=== PATIENT | female | born 1955 | race Caucasian/White ===

== ENCOUNTER → 2016-09-16 | Outpatient (CLI) | payer BC ==
[~2016-09-16] MED LIST: ISOS30TA4 PO; LASI20TA PO; NITR4TASL SL; POTA20TA PO; URSO300C3 PO
--- NOTE | 2016-09-16 09:43 | REP ---
Complete abdominal sonography: Hepatic and portal venous Doppler assessment: History: Cirrhosis of the liver without mention of alcohol, primary biliary cirrhosis. Comparison CT study July 02, 2014. Comparison sonography June 02, 2015. Sonographic findings: Scanning through the right upper quadrant of the abdomen demonstrates a normal sized thin-walled gallbladder without evidence of stone or polyp. Common bile duct is normal measuring 0.5 cm in greatest diameter. There is a coarse liver texture. The umbilical vein is seen to be patent. No focal liver mass lesion is seen. Scan quality is inhibited by patient body habitus and bowel gas. There is minimal ascites adjacent to the liver. A normal caliber mid aorta is seen. Pancreas is obscured by abdominal gas. The spleen is enlarged measuring 13.1 cm in greatest diameter. No focal splenic lesion is seen. There is no evidence of hydronephrosis, cyst or mass in either kidney. Right renal dimensions are 9.4 x 6.0 x 5.1 cm. The left kidney measures 10.6 x 4.7 x 5.3 cm. Impression: Findings compatible with cirrhosis. No focal liver lesion is seen. Visceral Doppler findings: Exam quality is inhibited as above due to patient body habitus, bowel gas, and inability to breath hold. Normal direction of and velocities are seen in the portal vein, splenic vein, and hepatic veins. Minimal ascites is seen. Main portal vein by diameter is normal at 6 mm. Velocity venous flow in the portal vein is recorded 18.9 cm/sec. Splenic vein velocity is 30.7 cm/sec. Hepatic arterial peak systolic velocity is 112 cm/sec. Impression: Recannulated umbilical vein . Normal direction and velocities in the splenic and portal vein. Scan quality is inhibited to some degree. Signed by Dmitri Sorto MD 09/16/2016 12:57 P
[2016-09-16 11:09] LABS: INR 1.36
[2016-09-16 11:13] LABS: ALBUMIN 2.1 GM/DL (3.2-5.2); ALBUMIN/GLOBULIN RATIO 0.58 (1.00-1.93); ALKALINE PHOSPHATASE 232 U/L (45-117); ALT/SGPT 41 U/L (12-78); ANION GAP 5 MEQ/L (8-16); AST/SGOT 73 U/L (15-37); BILIRUBIN,DIRECT 2.4 MG/DL (0.0-0.2); BILIRUBIN,TOTAL 3.2 MG/DL (0.2-1.0); BLOOD UREA NITROGEN 11 MG/DL (7-18); CALCIUM LEVEL 8.1 MG/DL (8.8-10.2); CARBON DIOXIDE LEVEL 30 MEQ/L (21-32); CHLORIDE LEVEL 105 MEQ/L (98-107); FERRITIN 22 NG/ML (8-252); GLOMERULAR FILTRATION RATE > 60.0 (>45); GLUCOSE, FASTING 83 MG/DL (80-110); POTASSIUM SERUM 3.9 MEQ/L (3.5-5.1); SODIUM LEVEL 140 MEQ/L (136-145); TOTAL PROTEIN 5.7 GM/DL (6.4-8.2)
[2016-09-18 00:06] LABS: SJOGREN'S ANTI SS-A <0.2 AI (0.0-0.9); SJOGREN'S ANTI SS-B 3.3 AI (0.0-0.9)
== END ==
LOC: M RAD 07:59
PROVIDERS: ATTEND Internal Medicine Gastroenterology
DX: K74.60 Unspecified cirrhosis of liver (principal); K74.3 Primary biliary cirrhosis

== ENCOUNTER 2016-12-24 16:07 | Observation (INO) | payer BC ==
[~2016-12-24] VITALS: Ht 162.6 cm; Wt 104.4 kg
[2016-12-24] MEDS ORDERED: SPIR50TA2 PO (16:27)
[2016-12-24] MEDS ORDERED: VITA1CAP40 (16:27)
[2016-12-24 17:44] LABS: INR 1.47
[2016-12-24 17:49] LABS: ADD MANUAL DIFFER YES; DIFF SLIDE NUMBER 318; MEAN CORPUSCULAR HGB CONC 29.8 g/dl (32.0-36.5); MEAN CORPUSCULAR VOLUME 83.8 fl (80.0-96.0); RED CELL DISTRIBUTION WIDTH 23.3 % (11.5-14.5)
[2016-12-24 18:00] LABS: ALBUMIN 2.2 GM/DL (3.2-5.2); ALBUMIN/GLOBULIN RATIO 0.61 (1.00-1.93); ALKALINE PHOSPHATASE 192 U/L (45-117); ALT/SGPT 39 U/L (12-78); ANION GAP 10 MEQ/L (8-16); AST/SGOT 61 U/L (15-37); BILIRUBIN,DIRECT 2.6 MG/DL (0.0-0.2); BILIRUBIN,TOTAL 3.6 MG/DL (0.2-1.0); BLOOD UREA NITROGEN 14 MG/DL (7-18); CALCIUM LEVEL 8.3 MG/DL (8.8-10.2); CARBON DIOXIDE LEVEL 26 MEQ/L (21-32); CHLORIDE LEVEL 106 MEQ/L (98-107); CREATININE FOR GFR 0.73 MG/DL (0.55-1.02); GLOMERULAR FILTRATION RATE > 60.0 (>45); GLUCOSE, FASTING 97 MG/DL (80-110); POTASSIUM SERUM 4.2 MEQ/L (3.5-5.1); SODIUM LEVEL 142 MEQ/L (136-145); TOTAL PROTEIN 5.8 GM/DL (6.4-8.2)
--- NOTE | 2016-12-24 18:01 | REP ---
Clinical: Altered mental status . Comparison: None . Findings: The ventricles, sulci, and cisterns are normal in position and appearance. South-white differentiation is maintained. No acute intracranial hemorrhage, mass/mass effect, pathology or trauma/injury. No evidence for acute infarction. No extra-axial fluid collection. Calvarium is intact. Paranasal sinuses and mastoid air cells are clear. Impression: Normal noncontrast head CT. No evidence for acute intracranial pathology or trauma/injury. Signed by Stefano Chery MD 12/24/2016 05:52 P
[2016-12-24 18:09] LABS: PLATELET COUNT, AUTOMATED 70 k/mm3 (150-450)
[2016-12-24] MEDS ORDERED: LACTULOSE 20 GM/30 ML SYRUP UD PO ONE (18:30)
[2016-12-24 19:18] LABS: BASOPHILS 1 % (0-4); EOSINOPHILS 4 % (0-5)
[2016-12-24 19:19] LABS: ANISOCYTOSIS 2+; HYPOCHROMASIA 2+; MICROCYTOSIS 1+; POLYCHROMASIA 1+
[2016-12-24] MEDS ORDERED: ONDANSETRON 4MG/2ML VIAL (J2405) IV PRN (19:45)
[2016-12-24] MEDS ORDERED: ERGO500014 PO (20:12)
[2016-12-24] MEDS ORDERED: ICYCRE EXT (20:12)
--- NOTE | 2016-12-24 20:39 | HPE ---
DATE OF ADMISSION: 12/24/2016 PRIMARY CARE PROVIDER: Emma Miller NP, [facility]. HISTORY OF PRESENT ILLNESS: This is a patient is a 61-year-old female with a past medical history significant for primary biliary cirrhosis who presented to [facility] on 12/24/2016 with intermittent confusion. At approximately 1:00 a.m., the patient woke up with confusion, not able to answer questions properly, and the patient started to have nausea without vomiting. Her mentation started to improve spontaneously. However, the symptoms still occurred intermittently throughout the day and this afternoon occurred again and the family member decided to bring the patient to [facility] for further evaluation. The patient does complain about one soft stool in the last 24 hours. The patient also noted to have intermittent hand and leg shaking during those confusion episodes, but no tongue biting. No loss of bowel or bladder control. The patient also had a very unsteady gait. No loss of consciousness noted. The confusion never happened before. The patient was originally diagnosed with primary biliary cirrhosis and since July of 2014, the patient has been following with the [facility]. ALLERGIES: Questionable to PENICILLIN. PAST MEDICAL HISTORY: Primary biliary cirrhosis diagnosed in July 2014. PAST SURGICAL HISTORY: (C) section. SOCIAL HISTORY: The patient smoked for more than 40 years. The patient denies drinking alcohol. Denied any recreational drug use. DO NOT RESUSCITATE (DNR)/DO NOT INTUBATE (DNI). REVIEW OF SYSTEMS: GENERAL: Denies any fever or chills. HEENT: No vision changes. No auditory changes. CARDIOVASCULAR: No chest pain. No palpitations. RESPIRATORY: No shortness of breath. No cough. No sputum production. GASTROINTESTINAL: One episode of soft stool in the last 24 hours. Denies any abdominal pain. Denies any constipation. The patient does complain about nausea. No vomiting. MUSCULOSKELETAL: Denied any joint pain or muscle pain. NEUROLOGIC: The patient does present with intermittent confusion since 1:00 a.m. today. OBJECTIVE: VITAL SIGNS: The temperature is 97.9, pulse is 86, respiratory rate 18, blood pressure 134/61, pulse oximetry 98% on room air. GENERAL: No sign of acute distress, morbidly obese, alert and oriented times three. HEENT: Normocephalic, atraumatic. Extraocular motor grossly intact. CARDIOVASCULAR: Positive systolic murmur heard at the left sternal border. Positive S1, S2, regular rate. LUNGS: Clear to auscultation bilaterally. ABDOMEN: Soft, nontender, nondistended. Bowel sounds present. No rebound. No guarding. EXTREMITIES: No edema. No sign of cyanosis. NEUROLOGICAL: Sensation to fine touch grossly intact. Muscle strength 5/5. LABORATORY DATA: WBC is 3, hemoglobin 8.6, hematocrit is 28.7, platelet count is 70. Sodium is 142, potassium 4.2, chloride is 106, carbon dioxide 26, BUN 14, creatinine 0.73, GFR greater than 60, fasting glucose 97, lactic acid is 1.8, calcium is 8.3, total bilirubin is 3.6, direct bilirubin is 2.6, AST is 61, ALT is 36, alkaline phosphatase is 192, ammonia level 46, total bilirubin is 5.8, albumin is 2.2. PT is 18.2, INR is 1.47. MICROBIOLOGY: Blood cultures are pending times two sets. CT of the head without contrast shows normal noncontrast head CT. No evidence of acute intracranial pathology, trauma or injury. ASSESSMENT AND PLAN: 1. Metabolic encephalopathy. The patient admitted to the medical/surgical floor under observation status. The patient does have a history of primary biliary cirrhosis with an elevated ammonia level. The patient has not been taking lactulose. Lactulose was started in the emergency room. We will continue as a scheduled dose and to try to achieve less than three bowel movements in 24 hours. We will check the ammonia level tomorrow morning. 2. Primary biliary cirrhosis. The patient has been taking immunosuppressant given by her specialist. The patient may continue taking the same medications while inpatient. Continue with the diuretic. 3. New onset of heart murmur. The patient has never been noticed to have a heart murmur. We will follow with a cardiac echogram. 4. Pancytopenia, most likely secondary to the patient's liver cirrhosis. Continue to follow with the complete blood count (CBC) tomorrow. 5. Deep vein thrombosis (DVT) prophylaxis. Due to thrombocytopenia with a platelet count of 70, the patient will be on thromboembolic-deterrent stockings (TEDS), sequential compression device. [facility]
[2016-12-24 21:30] VITALS: BP 123/57
[2016-12-24] MEDS: LACTULOSE 20 GM/30 ML SYRUP UD PO SCH (23:09)
[2016-12-25] MEDS: LACTULOSE 20 GM/30 ML SYRUP UD PO SCH ×4 (05:25→23:34)
[2016-12-25 06:00] VITALS: BP 104/50
[2016-12-25] MEDS ORDERED: HEPARIN SOD (PORCINE) 5000 UNITS/ML VIAL SC SCH (06:00)
[2016-12-25 06:09] LABS: MEAN CORPUSCULAR HEMOGLOBIN 25.1 pg (27.0-33.0); MEAN CORPUSCULAR HGB CONC 30.3 g/dl (32.0-36.5); MEAN CORPUSCULAR VOLUME 82.8 fl (80.0-96.0); RED CELL DISTRIBUTION WIDTH 23.4 % (11.5-14.5)
[2016-12-25 06:36] LABS: ALBUMIN/GLOBULIN RATIO 0.63 (1.00-1.93); ALKALINE PHOSPHATASE 165 U/L (45-117); ALT/SGPT 35 U/L (12-78); ANION GAP 7 MEQ/L (8-16); AST/SGOT 60 U/L (15-37); BILIRUBIN,TOTAL 3.2 MG/DL (0.2-1.0); BLOOD UREA NITROGEN 14 MG/DL (7-18); CALCIUM LEVEL 7.9 MG/DL (8.8-10.2); CARBON DIOXIDE LEVEL 28 MEQ/L (21-32); CHLORIDE LEVEL 108 MEQ/L (98-107); CREATININE FOR GFR 0.74 MG/DL (0.55-1.02); GLOMERULAR FILTRATION RATE > 60.0 (>45); GLUCOSE, FASTING 91 MG/DL (80-110); MAGNESIUM LEVEL 1.9 MG/DL (1.8-2.4); POTASSIUM SERUM 3.8 MEQ/L (3.5-5.1); SODIUM LEVEL 143 MEQ/L (136-145); TOTAL PROTEIN 5.2 GM/DL (6.4-8.2)
[2016-12-25] MEDS: FUROSEMIDE 20 MG TAB PO SCH ×2 (08:47→17:51)
[2016-12-25] MEDS: URSODIOL 300 MG CAP PO SCH ×3 (08:47→17:51)
[2016-12-25] MEDS: SPIRONOLACTONE 50 MG TAB PO SCH ×2 (08:47→20:22)
[2016-12-25] MEDS: rifAXIMin 550 MG TAB (XIFAXAN) PO SCH ×2 (08:47→20:22)
[2016-12-25] MEDS: NICOTINE 14 MG/24 HR TRANSDERMAL TD SCH ×2 (08:48→08:54)
[2016-12-25 14:00] VITALS: BP 121/59
--- NOTE | 2016-12-25 16:09 | REP ---
HEPATIC ULTRASOUND: 12/25/2016: COMPARISON: 09/16/2016, 06/02/2015, 11/15/2014. CLINICAL HISTORY: Cirrhosis. FINDINGS: Sonographic evaluation of the liver shows the right lobe with coarse echotexture in the liver. It is overall small and somewhat cirrhotic in appearance. Left lobe is poorly visualized. Pancreas is not seen due to extensive gas shadowing. No visible mass or biliary dilatation. Gallbladder is contracted although the patient has a fast for more than 8 hours. No definite shadowing stones are identified. Common duct is not seen due to the patient's field of view. The kidney is 9.3 x 6.3 x 6.2 cm. The hepatic portal veins are patent and the main portal vein shows flow into the liver at this time. IMPRESSION: 1. Coarse echotexture in the liver with lobulated contour. There is a small right hepatic lobe, left hepatic lobe obscured by extensive gas shadowing. Findings suggest stenosis. No biliary dilatation. 2. Pancreas not seen due to gas shadowing. The gallbladder is contracted although she has had an adequate fast of more than 8 hours. No gross stones. Common duct not seen. Right kidney mildly atrophic 9.3 cm in length. No hydronephrosis or stone. The main portal vein shows flow into the liver. Patent see veins in the liver noted. Signed by Maurizio Rush MD 12/25/2016 04:22 P
--- NOTE | 2016-12-25 16:32 | IPNPDOC ---
Subjective Date Seen The patient was seen on 12/25/16. Subjective Chief Complaint/HPI The patient is a 61-year-old female admitted with a reason for visit of Hepactic Encephalopathy Primary Biliary Cirrhosis. Pt was seen and examined at bedside. Pt has a pleasant demeanor. Pt states she did not sleep well due to pain from previous T12 fracture. States she had one bowel movement last night that was green and brown, no blood. No acute complaints. Pt is noted to be more interactive and coherent. Per staff, pt no longer seems to have altered mental status and no overnight concerns were reported. Constitutional: Denies: Chills, Fever ENT: Denies: Head Aches, Dysphagia Pulmonary: Denies: Dyspnea, Cough Cardiovascular: Denies: Chest Pain, Lt Headedness Gastrointestinal: Denies: Nausea, Vomiting, Abdominal Pain Genitourinary: Denies: Dysuria Musculoskeletal: Reports: Other Symptoms (Back pain at T12 from fracture previously) Psych: Reports: Mood Normal Objective Physical Examination General Exam: Positive: Alert, Cooperative, No Acute Distress Eye Exam: Positive: EOMI Neck Exam: Positive: Supple, Negative: Lymphadenopathy Chest Exam: Positive: Rales (b/l lower base), Negative: Wheezing Heart Exam: Positive: Rate Normal, Regular Rhythm, Normal S1, Normal S2, Murmurs (systolic murmur heard best at the sternal border at the 2nd intercostal space) Abdomen Exam: Positive: BS Hyperactive, Soft, Negative: Tenderness Extremity Exam: Positive: Normal pulses, Other (lacuna more than half of nail bed), Negative: Tenderness, Swelling Skin Exam: Positive: Nl turgor and temperature Neuro Exam: Positive: Normal Speech Psych Exam: Positive: Mental status NL, Mood NL, Memory Intact, Oriented x 3 Assessment /Plan Assessment s/p Metabolic Encephalopathy - Significant improvement in her mental status this morning; AAOx3, no confusion noted -Pt arrived to the ED with an elevated ammonia level that has since been trending down on Lactulose. Goal is to have up to 3 BMs/day. Monitor -Rifaximin started today for possible etiologic cause being bacterial overgrowth Primary Biliary Cirrhosis -continue home Ursodial and diuretics Lasix & Spironolactone -PENDING: Liver US Pancytopenia -2/2 cirrhotic liver. Monitor -Repeat H&H are stable and non-concerning. Transfuse if H&H<7 or if pt symptomatic New heart murmur -systolic murmur at 2nd left intercostal space -PENDING: Echocardiogram Hx of smoking -Nicotine patch DVT prophylaxis -TEDs/SCDs. Avoid Heparin and Lovenox due to pre-existing thrombocytopenia Plan/VTE VTE Prophylaxis Ordered?: Yes VS, I&O, 24H, Fishbone Vital Signs/I&O Vital Signs Date Time Temp Pulse Resp B/P (MAP) Pulse Ox O2 Delivery O2 Flow Rate FiO2 12/25/16 06:00 98.6 82 18 104/50 (68) 98 Room Air I&O- Last 24 Hours up to 6 AM 12/25/16 05:59 Intake Total 0 ml Output Total 250 ml Balance -250 ml Laboratory Data 24H LABS Laboratory Tests 2 12/24/16 17:17: Neutrophils 72, Lymphocytes (Manual) 18, Monocytes (Manual) 5, Eosinophils ( Manual) 4, Basophils (Manual) 1, Platelet Estimate DECREASED, Polychromasia 1+, Hypochromasia 2+, Anisocytosis 2+, Microcytosis 1+, Prothrombin Time 18.2H, Prothromb Time International Ratio 1.47, Activated Partial Thromboplast Time 35.8, Anion Gap 10, Glomerular Filtration Rate > 60.0, Lactic Acid Level 1.8, Calcium Level 8.3L, Aspartate Amino Transf (AST/SGOT) 61H, Alanine Aminotransferase (ALT/SGPT) 39, Alkaline Phosphatase 192H, Total Bilirubin 3.6H , Direct Bilirubin 2.6H, Ammonia 46H, Total Protein 5.8L, Albumin 2.2L, Albumin/ Globulin Ratio 0.61L 12/25/16 05:52: Anion Gap 7L, Glomerular Filtration Rate > 60.0, Calcium Level 7.9L, Aspartate Amino Transf (AST/SGOT) 60H, Alanine Aminotransferase (ALT/SGPT) 35, Alkaline Phosphatase 165H, Total Bilirubin 3.2H, Ammonia 40H, Total Protein 5.2L, Albumin 2.0L, Albumin/Globulin Ratio 0.63L, Blood Urea Nitrogen 14, Creatinine 0.74, Sodium Level 143, Potassium Level 3.8, Chloride Level 108H, Carbon Dioxide Level 28, Magnesium Level 1.9 CBC/BMP Laboratory Tests 12/24/16 17:17 Red Blood Count 3.43 L, Mean Corpuscular Volume 83.8, Mean Corpuscular Hemoglobin 25.0 L, Mean Corpuscular Hemoglobin Concent 29.8 L, Red Cell Distribution Width 23.3 H 12/25/16 05:52 Red Blood Count 3.12 L, Mean Corpuscular Volume 82.8, Mean Corpuscular Hemoglobin 25.1 L, Mean Corpuscular Hemoglobin Concent 30.3 L, Red Cell Distribution Width 23.4 H, Calcium Level 7.9 L, Aspartate Amino Transf (AST/SGOT ) 60 H, Alanine Aminotransferase (ALT/SGPT) 35, Alkaline Phosphatase 165 H, Total Bilirubin 3.2 H, Total Protein 5.2 L, Albumin 2.0 L Microbiology Microbiology 12/24/16 Blood Culture, Received Pending 12/24/16 Blood Culture, Received Pending GME ATTESTATION GME ATTESTATION My preceptor for this patient encounter was physically present in the building during the encounter and was fully available. As needed, all aspects of the patient interview, examination, medical decision making process, and medical care plan development were reviewed and approved by the preceptor. Preceptor is aware and concurs with the plan as stated in the body of this note and will attest to such by his/her cosignature. ATTENDING NOTE I, Magaly Mcfarlane, have both independently examined this patient as well as reviewed the documentation. I have discussed in detail with the resident the findings and plan of treatment as documented in the residents documentation. I will continue to follow the patient and offer further guidance to the patients care as necessary during this hospital stay. PRINCESS MARY DO Dec 25, 2016 07:55 MAGALY MCFARLANE MD Dec 30, 2016 15:57
[2016-12-25 22:00] VITALS: BP 117/54
[2016-12-26] MEDS: LACTULOSE 20 GM/30 ML SYRUP UD PO SCH ×2 (05:18→11:39)
[2016-12-26 06:00] VITALS: BP 120/58
[2016-12-26 06:41] LABS: MEAN CORPUSCULAR HEMOGLOBIN 25.2 pg (27.0-33.0); MEAN CORPUSCULAR VOLUME 83.9 fl (80.0-96.0); RED CELL DISTRIBUTION WIDTH 23.1 % (11.5-14.5); WHITE BLOOD COUNT 2.5 K/mm3 (4.0-10.0)
[2016-12-26 07:02] LABS: ALBUMIN/GLOBULIN RATIO 0.65 (1.00-1.93); ALKALINE PHOSPHATASE 191 U/L (45-117); ALT/SGPT 33 U/L (12-78); ANION GAP 8 MEQ/L (8-16); AST/SGOT 57 U/L (15-37); BILIRUBIN,TOTAL 2.6 MG/DL (0.2-1.0); BLOOD UREA NITROGEN 14 MG/DL (7-18); CALCIUM LEVEL 7.1 MG/DL (8.8-10.2); CARBON DIOXIDE LEVEL 27 MEQ/L (21-32); CHLORIDE LEVEL 109 MEQ/L (98-107); CREATININE FOR GFR 0.67 MG/DL (0.55-1.02); GLOMERULAR FILTRATION RATE > 60.0 (>45); GLUCOSE, FASTING 91 MG/DL (80-110); SODIUM LEVEL 144 MEQ/L (136-145); TOTAL PROTEIN 5.1 GM/DL (6.4-8.2)
[2016-12-26] MEDS: NICOTINE 14 MG/24 HR TRANSDERMAL TD SCH (08:18)
[2016-12-26] MEDS: SPIRONOLACTONE 50 MG TAB PO SCH (08:18)
[2016-12-26] MEDS: rifAXIMin 550 MG TAB (XIFAXAN) PO SCH (08:18)
[2016-12-26] MEDS: FUROSEMIDE 20 MG TAB PO SCH (08:19)
[2016-12-26] MEDS: URSODIOL 300 MG CAP PO SCH ×2 (08:19→11:38)
[2016-12-26] MEDS ORDERED: XIFA550T PO (13:21)
[2016-12-26] MEDS ORDERED: LACT10SO3 PO (13:21)
--- NOTE | 2016-12-27 09:42 | ECHO ---
DATE OF PROCEDURE: 12/25/2016 DATE OF : 1955 AGE: 61 REFERRING PROVIDER: Dr. Rani Fernandez. PATIENT LOCATION: Room 4229. REASON FOR ECHOCARDIOGRAM: Heart murmur. 2D MEASUREMENTS: IVS: 1.2 cm LV: 4.5 cm LVPW: 1.1 cm LA: 4.3 cm Aorta: 2.9 cm IVC: 1.9 cm DOPPLER MEASUREMENTS: Peak velocity across the aortic valve: 1.9 m/s Peak velocity across the LVOT: 1.0 m/s Mitral E: 1.3 Mitral A: 1.0 Ratio 1.2 Maximum tricuspid valve velocity: 2.6 m/s 2D COMMENTS: 1. Normal left ventricular size, wall thickness and normal global left ventricular systolic function. The estimated global left ventricular systolic ejection fraction is 60% to 65%. 2. Mildly enlarged left atrium. Normal right atrium and right ventricle. 3. The atrial septum appeared to be normal without evidence of defect or shunt. 4. Normal aortic root. 5. No pericardial effusion seen. 6. Mildly calcified aortic valve, leaflet excursion appeared to be normal. Mildly calcified mitral annulus. Could not rule out prolapse of the anterior mitral valve leaflet. Normal tricuspid valve and pulmonic valve. The proximal pulmonary artery branches were not well visualized. 7. The inferior vena cava was normal in size, central venous pressure likely normal. DOPPLER: It detects trace aortic regurgitation, moderate eccentric mitral regurgitation, mild tricuspid regurgitation, and trace pulmonic regurgitation. The calculated pulmonary artery systolic pressure varies between 30 to 40 mmHg. Abnormal relaxation pattern was noted across the mitral valve annulus consistent with pseudonormal pattern. IMPRESSION: 1. Normal global left ventricular systolic function. There are features of left ventricular diastolic dysfunction. 2. Aortic valve sclerosis with trace aortic regurgitation and trivial aortic stenosis. 3. Mitral annulus calcification with mildly enlarged left atrium and moderate mitral regurgitation. Could not rule out mild prolapse of the anterior mitral valve leaflet. 4. Mild tricuspid regurgitation with mild pulmonary hypertension. MTDD
--- NOTE | 2016-12-27 14:15 | DS.PDOC ---
Discharge Summary General Date of Admission Dec 24, 2016 at 19:45 Date of Discharge 12/26/16 Primary Care Physician: Emma Hardy Attending Physician: MAGALY MORRIS MD Discharge Summary PROCEDURES PERFORMED DURING STAY: Echocardiogram ADMITTING DIAGNOSES: 1. Hepatic Encephalopathy 2. Primary Biliary Cirrhosis DISCHARGE DIAGNOSES: 1. Primary Biliary Cirrhosis. COMPLICATIONS/CHIEF COMPLAINT: Hepatic Encephalopathy Primary Biliary Cirrhosis. HISTORY OF PRESENT ILLNESS: Ms. Jennings was brought by family to ED for intermittent confusion that started around 1 AM when she woke up from sleep, and associated with nausea. Episodes spontaneously resolved, and reoccurred later in the day. Episodes are associated with unsteady gait and intermittent shaking of hands and legs, but no tongue biting. No loss of bowel or bladder function. Patient denies history of similar symptoms. Pt has history of Primary Biliary Cirrhosis, diagnosed in July 2014, which she is seeking care for at [facility]. HOSPITAL COURSE: In the ED, she was found to have elevated ammonia level, pancytopenia, hyperbilirubinemia, transaminase. Blood cultures were negative. Pt does not regularly take Lactulose. It was started in the hospital along with Rifaximin, which helped patient improve. Pt had no acute events in hospital throughout entire stay. Pt was no longer confused the morning after admission, and stated she felt better and eager to go home. Pt was medically cleared with instructions to follow up with PCP and [employer] in outpatient setting. DISCHARGE MEDICATIONS: Please see below. ALLERGIES: Please see below. PHYSICAL EXAMINATION ON DISCHARGE: VITAL SIGNS: Please see below. GENERAL: NAD, resting comfortably in bed HEENT: normocephalic, atraumatic NECK: supple CARDIOVASCULAR EXAMINATION: RRR, systolic 2/6 murmur at left sternal border RESPIRATORY EXAMINATION: CTAB ABDOMINAL EXAMINATION: soft, nontender, nondistended EXTREMITIES: no cyanosis, edema SKIN: no visible lesions NEUROLOGICAL EXAMINATION: able to move all 4 extremities PSYCHIATRIC EXAMINATION: normal mood and affect LABORATORY DATA: Please see below. IMAGING: * 12/[address]: Normal noncontrast head CT. No evidence for acute intracranial pathology or trauma/injury. * 12/24 Liver US: Coarse echotexture in the liver with lobulated contour. There is a small right hepatic lobe, left hepatic lobe obscured by extensive gas shadowing. Findings suggest stenosis. No biliary dilatation. Pancreas not seen due to gas shadowing. The gallbladder is contracted although she has had an adequate fast of more than 8 hours. No gross stones. Common duct not seen. Right kidney mildly atrophic 9.3 cm in length. No hydronephrosis or stone. The main portal vein shows flow into the liver. PROGNOSIS: Good ACTIVITY: As tolerated DIET: Regular DISPOSITION: Home DISCHARGE INSTRUCTIONS: 1. F/U with PCP Emma Miller, appt made for 01/03 @ 2:15pm 2. F/U with [employer] Dr. Arce, appt for 01/07 @ 3:30pm 3. Remain compliant with medications and return to ED if needed DISCHARGE CONDITION: Stable TIME SPENT ON DISCHARGE: Greater than 30 minutes. Vital Signs/I&Os Vital Signs Date Time Temp Pulse Resp B/P (MAP) Pulse Ox O2 Delivery O2 Flow Rate FiO2 12/26/16 06:00 97.8 91 18 120/58 (78) 100 12/25/16 14:00 Room Air I&O- Last 24 Hours up to 6 AM 12/26/16 06:00 Intake Total 840 ml Output Total 150 ml Balance 690 ml Laboratory Data Labs 24H Laboratory Tests 2 12/26/16 06:00: Anion Gap 8, Glomerular Filtration Rate > 60.0, Blood Urea Nitrogen 14, Creatinine 0.67, Sodium Level 144, Potassium Level 4.0, Chloride Level 109H, Carbon Dioxide Level 27, Calcium Level 7.1L, Aspartate Amino Transf (AST/SGOT) 57H, Alanine Aminotransferase (ALT/SGPT) 33, Alkaline Phosphatase 191H, Total Bilirubin 2.6H, Total Protein 5.1L, Albumin 2.0L, Magnesium Level 2.0, Ammonia 34H, Albumin/Globulin Ratio 0.65L CBC/BMP Laboratory Tests 12/25/16 12:54 12/26/16 06:00 Red Blood Count 3.12 L, Mean Corpuscular Volume 83.9, Mean Corpuscular Hemoglobin 25.2 L, Mean Corpuscular Hemoglobin Concent 30.0 L, Red Cell Distribution Width 23.1 H, Calcium Level 7.1 L, Aspartate Amino Transf (AST/SGOT ) 57 H, Alanine Aminotransferase (ALT/SGPT) 33, Alkaline Phosphatase 191 H, Total Bilirubin 2.6 H, Total Protein 5.1 L, Albumin 2.0 L Microbiology Microbiology 12/24/16 Blood Culture - Preliminary, Resulted No growth after 24 hours . All specim... 12/24/16 Blood Culture - Preliminary, Resulted No growth after 24 hours . All specim... Discharge Medications Scheduled Ergocalciferol (Ergocalciferol) 50,000 Unit Cap, 50,000 UNIT PO ASDIRECTED, ( Reported) TAKES ON FRIDAY MORNINGS Furosemide (Lasix) 20 Mg Tab, 20 MG PO BID, (Reported) Potassium Chloride (Klor-Con M20) 20 Meq Tabcr, 20 MEQ PO DAILY, (Reported) Rifaximin (Xifaxan) 550 Mg Tab, 550 MG PO BID Spironolactone (Spironolactone) 50 Mg Tab, 50 MG PO BID, (Reported) Ursodiol (Ursodiol) 300 Mg Cap, 300 MG PO WM, (Reported) Scheduled PRN (Icy Hot Extra Strength 10-30 %) 1 Cre Cre, 1 DOSE EXT QID PRN for PAIN, ( Reported) USES ON KNEES Lactulose (Lactulose) 10 Gm/15 Ml Maria Isabel, 30 ML PO Q6HP PRN for CONSTIPATION Please take to ensure aproximately 2-3 bowel movements daily Nitroglycerin (Nitrostat) 0.4 Mg Subl, 0.4 MG SL NITRO PRN for CHEST PAIN, ( Reported) Allergies Coded Allergies: Penicillins (Unverified Allergy, Mild, rash, 06/10/15) Aspirin (Unverified Adverse Reaction, Unknown, Cirrhosis, 06/10/15) GME ATTESTATION GME ATTESTATION My preceptor for this patient encounter was physically present in the building during the encounter and was fully available. As needed, all aspects of the patient interview, examination, medical decision making process, and medical care plan development were reviewed and approved by the preceptor. Preceptor is aware and concurs with the plan as stated in the body of this note and will attest to such by his/her cosignature. ATTENDING NOTE I, Magaly Morris, have both independently examined this patient as well as reviewed the documentation. I have discussed in detail with the resident the findings and plan of treatment as documented in the residents documentation. I will continue to follow the patient and offer further guidance to the patients care as necessary during this hospital stay. PRINCESS MARY DO Dec 26, 2016 08:08 MAGALY MORRIS MD Dec 30, 2016 16:08
[2016-12-31] MEDS ORDERED: VITAMIN D 50,000 UNITS CAPSULE (ERGOCALCIFEROL 1.25MG) PO SCH (09:00)
== END 2016-12-26 14:20 | disposition home or self-care (01) ==
LOC: M ED 16:07 → M ED INP 19:45 → M MSPAV 21:28
PROVIDERS: ADMIT Internal Medicine; ATTEND Internal Medicine
DX: K74.3 Primary biliary cirrhosis (principal); K72.90 Hepatic failure, unspecified without coma; R01.1 Cardiac murmur, unspecified; D61.818 Other pancytopenia; Z79.899 Other long term (current) drug therapy; Z88.0 Allergy status to penicillin; Z88.8 Allergy status to other drugs, medicaments and biological substances

== ENCOUNTER → 2017-02-21 | Outpatient (REF) | payer BC ==
[~2017-02-21] MED LIST changes: +ERGO500014 PO; +ICYCRE EXT; +LACT10SO3 PO; +SPIR50TA2 PO; +VITA1CAP40; +XIFA550T PO
[2017-02-21 17:39] LABS: INR 1.37
== END ==
LOC: M LAB REF 16:40
PROVIDERS: ATTEND Internal Medicine
DX: K74.3 Primary biliary cirrhosis (principal)

== ENCOUNTER → 2017-03-18 | Outpatient (REF) | payer BC ==
[~2017-03-18] MED LIST changes: +CONS10SO3; +FERR1TAB8 PO; +FURO40TA2 PO; +NITR0.4S14; +SPIR25TA2 PO; +VITMTA PO
[2017-03-19 15:18] LABS: PERCENT SATURATION 11.8 % (13.2-45.0)
== END ==
LOC: M LAB REF 13:50
PROVIDERS: ATTEND Internal Medicine
DX: D50.9 Iron deficiency anemia, unspecified (principal)

== ENCOUNTER 2017-03-23 06:23 | Inpatient (IN) | payer BC ==
[~2017-03-23] VITALS: Ht 162.6 cm; Wt 117.1 kg
[~2017-03-23 06:23] MED LIST changes: -CONS10SO3; -FERR1TAB8 PO; -FURO40TA2 PO; -NITR0.4S14; -SPIR25TA2 PO; -VITMTA PO
[2017-03-23] MEDS ORDERED: NITR0.4S14 (06:32)
[2017-03-23] MEDS ORDERED: CONS10SO3 (06:32)
[2017-03-23 07:33] LABS: BASO % 0.6 % (0.0-1.0); EOS # 0.1 10^3/uL (0.0-0.50); EOS % 3.4 % (0.0-3.0); IMMATURE GRANULOCYTE % 0.3 % (0-0); LYMPH # 0.7 10^3/uL (1.5-4.5); LYMPH % 18.6 % (24.0-44.0); MEAN CORPUSCULAR HEMOGLOBIN 22.8 pg (27.0-33.0); MEAN CORPUSCULAR HGB CONC 29.5 g/dl (32.0-36.5); MEAN CORPUSCULAR VOLUME 77.2 fl (80.0-96.0); MONO # 0.4 10^3/uL (0.0-0.8); MONO % 10.1 % (0.0-5.0); NEUTROPHILS # 2.4 10^3/uL (1.8-7.7); RED CELL DISTRIBUTION WIDTH 26.1 % (11.5-14.5); WHITE BLOOD COUNT 3.6 10^3/uL (4.0-10.0)
[2017-03-23 07:50] LABS: ALBUMIN 2.4 GM/DL (3.2-5.2); ALBUMIN/GLOBULIN RATIO 0.67 (1.00-1.93); ALKALINE PHOSPHATASE 234 U/L (45-117); ALT/SGPT 43 U/L (12-78); ANION GAP 11 MEQ/L (8-16); AST/SGOT 78 U/L (7-37); BILIRUBIN,DIRECT 3.4 MG/DL (0.0-0.2); BILIRUBIN,TOTAL 4.4 MG/DL (0.2-1.0); BLOOD UREA NITROGEN 16 MG/DL (7-18); CALCIUM LEVEL 7.9 MG/DL (8.8-10.2); CARBON DIOXIDE LEVEL 26 MEQ/L (21-32); CHLORIDE LEVEL 100 MEQ/L (98-107); CREATININE FOR GFR 0.89 MG/DL (0.55-1.02); GLOMERULAR FILTRATION RATE > 60.0 (>45); GLUCOSE, FASTING 92 MG/DL (80-110); POTASSIUM SERUM 3.7 MEQ/L (3.5-5.1); SODIUM LEVEL 137 MEQ/L (136-145)
[2017-03-23 07:55] LABS: INR 1.39
[2017-03-23 07:56] LABS: PLATELET COUNT, AUTOMATED 70 10^3/uL (150-450)
--- NOTE | 2017-03-23 08:40 | ECGEPIP ---
Stationary ECG Study [facility] - ED Test Date: 2017-03-23 Pat Name: ALYSHA GARCÍA Department: Room: - Gender: F [employer] Software Engineer: marquez : 1955 Requested By: Jem Roberts Order Number: [id number] Reading MD: Jem Garcia Measurements Intervals [place] Rate: 84 P: 38 IN: 127 QRS: -1 QRSD: 83 T: -4 QT: 366 QTc: 434 Interpretive Statements SINUS RHYTHM WITH SINUS ARRHYTHMIA MODERATE ST DEPRESSION SIMILAR TO 06/10/15 Electronically Signed On 03-23-2017 8:39:55 EST by Jem Garcia
[2017-03-23] MEDS ORDERED: NS 1,000 ML IV ONE (08:45)
--- NOTE | 2017-03-23 09:35 | REP ---
REASON: Weakness. The technique utilized in obtaining the radiograph has magnified the cardiac silhouette and accentuated the interstitial markings. FINDINGS: The superior mediastinal structures are midline. The cardiac silhouette is unremarkable in size, shape, and position. The diaphragmatic surfaces of the lungs are regular, and the costophrenic angles are clear. The pulmonary sewell are clear. The imaged osseous structures are intact. IMPRESSION: There is no acute cardiopulmonary disease. No change from 06/10/2015. Signed by Chava Chiu DO 03/23/2017 09:50 A
[2017-03-23] MEDS ORDERED: XIFA550T PO (11:40)
[2017-03-23] MEDS ORDERED: VITMTA PO (11:40)
[2017-03-23] MEDS ORDERED: SPIR25TA2 PO (11:40)
[2017-03-23] MEDS ORDERED: LACT10SO3 PO (11:40)
[2017-03-23] MEDS ORDERED: FURO40TA2 PO (11:40)
[2017-03-23] MEDS ORDERED: FERR1TAB8 PO (11:41)
[2017-03-23] MEDS ORDERED: LACTULOSE 20 GM/30 ML SYRUP UD PO PRN (13:00)
[2017-03-23 14:30] VITALS: BP 135/59
[2017-03-23] MEDS: URSODIOL 300 MG CAP PO SCH ×3 (16:46→18:41)
[2017-03-23] MEDS: SPIRONOLACTONE 50 MG TAB PO SCH (16:46)
[2017-03-23] MEDS: FUROSEMIDE 40 MG TAB PO SCH (16:46)
[2017-03-23] MEDS: rifAXIMin 550 MG TAB (XIFAXAN) PO SCH (20:39)
[2017-03-23 22:00] VITALS: BP 127/59
[2017-03-24 06:00] VITALS: BP 98/52
[2017-03-24 06:42] LABS: BASO % 0.5 % (0.0-1.0); EOS # 0.2 10^3/uL (0.0-0.50); EOS % 3.8 % (0.0-3.0); IMMATURE GRANULOCYTE % 0.7 % (0-0); MEAN CORPUSCULAR HEMOGLOBIN 24.5 pg (27.0-33.0); MEAN CORPUSCULAR HGB CONC 30.7 g/dl (32.0-36.5); MEAN CORPUSCULAR VOLUME 79.9 fl (80.0-96.0); MONO # 0.5 10^3/uL (0.0-0.8); NEUTROPHILS # 2.5 10^3/uL (1.8-7.7); RED CELL DISTRIBUTION WIDTH 23.2 % (11.5-14.5); WHITE BLOOD COUNT 4.2 10^3/uL (4.0-10.0)
[2017-03-24] MEDS ORDERED: LACTULOSE 20 GM/30 ML SYRUP UD PO ONE (07:00)
[2017-03-24 07:03] LABS: PLATELET COUNT, AUTOMATED 57 10^3/uL (150-450)
[2017-03-24 07:04] LABS: ALBUMIN 1.9 GM/DL (3.2-5.2); ALBUMIN/GLOBULIN RATIO 0.58 (1.00-1.93); ALKALINE PHOSPHATASE 184 U/L (45-117); ALT/SGPT 38 U/L (12-78); ANION GAP 8 MEQ/L (8-16); AST/SGOT 62 U/L (7-37); BILIRUBIN,TOTAL 4.6 MG/DL (0.2-1.0); BLOOD UREA NITROGEN 17 MG/DL (7-18); CALCIUM LEVEL 7.6 MG/DL (8.8-10.2); CARBON DIOXIDE LEVEL 28 MEQ/L (21-32); CHLORIDE LEVEL 102 MEQ/L (98-107); CREATININE FOR GFR 0.88 MG/DL (0.55-1.02); GLOMERULAR FILTRATION RATE > 60.0 (>45); GLUCOSE, FASTING 93 MG/DL (80-110); POTASSIUM SERUM 3.9 MEQ/L (3.5-5.1); SODIUM LEVEL 138 MEQ/L (136-145); TOTAL PROTEIN 5.2 GM/DL (6.4-8.2)
[2017-03-24 07:19] LABS: INR 1.52
[2017-03-24] MEDS: rifAXIMin 550 MG TAB (XIFAXAN) PO SCH ×2 (09:34→20:31)
[2017-03-24] MEDS: URSODIOL 300 MG CAP PO SCH ×3 (09:34→17:53)
[2017-03-24] MEDS: FUROSEMIDE 40 MG TAB PO SCH ×2 (09:34→17:53)
[2017-03-24] MEDS: SPIRONOLACTONE 50 MG TAB PO SCH ×2 (09:35→17:53)
--- NOTE | 2017-03-24 12:45 | IPNPDOC ---
Subjective Date Seen The patient was seen on 03/24/17. Subjective Chief Complaint/HPI The patient is a 61-year-old female admitted with a reason for visit of Symptomatic Anemia. Events since last encounter Feeling a little better today , no further dizziness. Has not had a bowel movement since coming to the hospital. No fever or chills, no abdominal pain , nausea or vomiting or diarrhea. Objective Physical Examination General Exam: Positive: Alert, Cooperative, No Acute Distress Eye Exam: Positive: PERRLA, Conjunctiva & lids normal, EOMI, Sclera icteric ENT Exam: Positive: Atraumatic, Mucous membr. moist/pink, Pharynx Normal Neck Exam: Positive: Supple, Negative: JVD, thyromegaly Chest Exam: Positive: Clear to auscultation, Normal air movement Heart Exam: Positive: Rate Normal, Regular Rhythm, Normal S1, Normal S2, Negative: Murmurs, Rubs Abdomen Exam: Positive: Normal bowel sounds, Soft, Negative: Tenderness, Hepatospenomegaly Extremity Exam: Positive: Edema Skin Exam: Positive: Nl turgor and temperature, Negative: Rash, Breakdown Assessment /Plan Problems (1) Symptomatic anemia Status: Acute Problem Text: No GIB . Has Iron deficiency and pancytopenia from cirrhosis received 2 units of prbc . will transfuse 1 more unit today. (2) Pancytopenia Status: Chronic Problem Text: due to cirrhosis. (3) Primary biliary cirrhosis Status: Chronic Problem Text: Has history of hepatic encephalopathy in dec 2016. No history of GIB or Ascitis. will continue with lactulose, rifaximin, lasix and spironolactone. wants to set up GI care in [place] with Dr Louis. (4) Iron deficiency anemia Status: Chronic Problem Text: will give ferrous sulphate. (5) Morbid obesity Status: Chronic (6) Coagulopathy Status: Chronic Problem Text: due to cirrhosis of liver. No signs of bleeding. Plan/VTE VTE Prophylaxis Ordered?: Yes VS, I&O, 24H, Fishbone Vital Signs/I&O Vital Signs Date Time Temp Pulse Resp B/P (MAP) Pulse Ox O2 Delivery O2 Flow Rate FiO2 03/24/17 06:00 98.3 77 18 98/52 (67) 98 Room Air I&O- Last 24 Hours up to 6 AM 03/25/17 06:00 Intake Total 480 ml Output Total 0 ml Balance 480 ml Laboratory Data 24H LABS Laboratory Tests 2 03/24/17 06:07: Immature Granulocyte % (Auto) 0.7H, White Blood Count 4.2, Red Blood Count 3.18L , Hemoglobin 7.8L, Hematocrit 25.4L, Mean Corpuscular Volume 79.9L, Mean Corpuscular Hemoglobin 24.5L, Mean Corpuscular Hemoglobin Concent 30.7L, Red Cell Distribution Width 23.2H, Platelet Count 57L, Neutrophils (%) (Auto) 60.0, Lymphocytes (%) (Auto) 24.0, Monocytes (%) (Auto) 11.0H, Eosinophils (%) (Auto) 3.8H, Basophils (%) (Auto) 0.5, Neutrophils # (Auto) 2.5, Lymphocytes # (Auto) 1.0L, Monocytes # (Auto) 0.5, Eosinophils # (Auto) 0.2, Basophils # (Auto) 0.0, Immature Granulocyte # (Auto) 0.0, Nucleated Red Blood Cells % (auto) 0.0, Prothrombin Time 18.7H, Prothromb Time International Ratio 1.52, Anion Gap 8, Glomerular Filtration Rate > 60.0, Blood Urea Nitrogen 17, Creatinine 0.88, Sodium Level 138, Potassium Level 3.9, Chloride Level 102, Carbon Dioxide Level 28, Calcium Level 7.6L, Aspartate Amino Transf (AST/SGOT) 62H, Alanine Aminotransferase (ALT/SGPT) 38, Alkaline Phosphatase 184H, Total Bilirubin 4.6H , Total Protein 5.2L, Albumin 1.9#L, Albumin/Globulin Ratio 0.58L CBC/BMP Laboratory Tests 03/24/17 06:07 Red Blood Count 3.18 L, Mean Corpuscular Volume 79.9 L, Mean Corpuscular Hemoglobin 24.5 L, Mean Corpuscular Hemoglobin Concent 30.7 L, Red Cell Distribution Width 23.2 H, Neutrophils (%) (Auto) 60.0, Lymphocytes (%) (Auto) 24.0, Monocytes (%) (Auto) 11.0 H, Eosinophils (%) (Auto) 3.8 H, Basophils (%) ( Auto) 0.5, Neutrophils # (Auto) 2.5, Lymphocytes # (Auto) 1.0 L, Monocytes # ( Auto) 0.5, Eosinophils # (Auto) 0.2, Basophils # (Auto) 0.0, Calcium Level 7.6 L , Aspartate Amino Transf (AST/SGOT) 62 H, Alanine Aminotransferase (ALT/SGPT) 38 , Alkaline Phosphatase 184 H, Total Bilirubin 4.6 H, Total Protein 5.2 L, Albumin 1.9 #L JOSEPH SAGE MD Mar 24, 2017 12:45
[2017-03-24] MEDS: LACTULOSE 20 GM/30 ML SYRUP UD PO SCH ×3 (12:59→20:31)
--- NOTE | 2017-03-24 13:46 | HPE ---
DATE OF ADMISSION: 03/23/2017 PRIMARY CARE PROVIDER: Emma Hardy NP MANAGER BAR: Dr. Arce. CHIEF COMPLAINT: Sudden onset weakness, dizziness and shakiness at around 12 midnight when she tried to get out of bed to go to the bathroom. She was concerned that this was the beginnings of her symptoms for hepatic encephalopathy, so she came to the emergency room. PAST MEDICAL HISTORY: Primary biliary cirrhosis diagnosed in July 2014. History of hepatic encephalopathy. Morbid obesity. Pancytopenia. Iron deficiency anemia. Moderate mitral regurgitation. Mild pulmonary hypertension. HISTORY OF PRESENT ILLNESS: This is a 61-year-old female who has been diagnosed with primary biliary cirrhosis in 2014 had a recent episode of hepatic encephalopathy in December 2016 who presented to the hospital with sudden onset shakiness, weakness and dizziness at around midnight she tried to get out of bed to go to the bathroom. She thought that she was having the beginning of the symptoms of hepatic encephalopathy because her hands were shaking so much, so she came to the emergency room for evaluation in the emergency department. The patient was not encephalopathy. Her ammonia level was normal. However, she was noted to be pancytopenic with a hemoglobin level a point lower than her values in December 2016. So it was felt that her symptoms were related to symptomatic anemia and the patient was admitted to the hospitalist service for further management. The patient denies any fevers or chills. Denies any chest pain, shortness of breath, cough or phlegm. Denied any abdominal pain. Denied any nausea, vomiting or diarrhea. The patient says she is always constipated unless she takes lactulose. Denied any history of gastrointestinal bleeding. Denied any history of ascites and peritoneal tapping. PAST SURGICAL HISTORY: section. SOCIAL HISTORY: Is a smoker and has smoked for more than 40 years. Denies any alcohol use. Denied any recreational drug use. ALLERGIES: ASPIRIN, PENICILLIN. REVIEW OF SYSTEMS: All 10-point review of systems is negative except those mentioned in the history of present illness. PHYSICAL EXAMINATION: VITAL SIGNS: Temperature 98, pulse 93, respiratory rate 18, blood pressure 141/60, pulse ox 96% in room air. GENERAL: The patient awake, alert, oriented times three, laying down in bed in no acute distress. HEENT: Normocephalic, atraumatic. Moist mucous membranes. Mild icteric eyes. CHEST: Clear to auscultation. Bilateral vesicular breath sounds. Symmetric. CV: S1, S2. Regular. No rub, murmur, or gallop. ABDOMEN: Obese. Soft nontender. Bowel sounds present. EXTREMITIES: 1-2+ bipedal edema. LABORATORY DATA: WBC 3.6, hemoglobin 7, platelets 17. Sodium 137, potassium 3.7, chloride 100, bicarbonate 26, BUN 16, creatinine 0.8, glucose 92, lactate 1.6, calcium 7.9, total bilirubin 4.4, direct 3.4, AST 78, ALT 43, alkaline phosphatase 234, ammonia 28, albumin 2.4, lipase 154. INR 1.39. Chest x-ray: No acute cardiopulmonary disease. ASSESSMENT/PLAN: This is a 61-year-old female with primary biliary cirrhosis, pancytopenia, iron deficiency anemia, admitted with symptomatic anemia. PLAN: For symptomatic anemia will transfuse patient two units of packed red blood cells (PRBC) and re-evaluate. 2. Pancytopenia related to her primary biliary cirrhosis. Platelet and WBC counts are at baseline. 3. Primary biliary cirrhosis: Follows with [facility] as well as her chain puller Dr. Arce in [place]. Appears to be stable. The patient's MELD score is around 16, which is the same as it was in December 2016. Will continue the patient on lactulose, Lasix, spironolactone and rifaximin as per home dosage. Will also continue the patient on Ursodiol. 4. History of hepatic encephalopathy. No signs of encephalopathy at this point. Will continue the patient on lactulose and . 5. Deep venous thrombosis prophylaxis: The patient is will continue with thromboembolic deterrent stockings (TEDS) and sequentials. The patient has platelets less than 70 so will not give any heparin.
[2017-03-24 14:15] VITALS: BP 121/54
[2017-03-24 15:30] VITALS: BP 114/57
[2017-03-24 20:00] VITALS: BP 106/46
[2017-03-25 06:00] VITALS: BP 115/54
[2017-03-25 06:45] LABS: BASO % 0.7 % (0.0-1.0); EOS # 0.2 10^3/uL (0.0-0.50); EOS % 5.1 % (0.0-3.0); IMMATURE GRANULOCYTE % 0.4 % (0-0); LYMPH # 1.1 10^3/uL (1.5-4.5); LYMPH % 24.5 % (24.0-44.0); MEAN CORPUSCULAR HEMOGLOBIN 24.9 pg (27.0-33.0); MEAN CORPUSCULAR HGB CONC 31.4 g/dl (32.0-36.5); MEAN CORPUSCULAR VOLUME 79.4 fl (80.0-96.0); MONO # 0.6 10^3/uL (0.0-0.8); MONO % 12.4 % (0.0-5.0); NEUTROPHILS # 2.6 10^3/uL (1.8-7.7); NEUTROPHILS % 56.9 % (36.0-66.0); RED CELL DISTRIBUTION WIDTH 22.7 % (11.5-14.5); WHITE BLOOD COUNT 4.5 10^3/uL (4.0-10.0)
[2017-03-25 06:46] LABS: PLATELET COUNT, AUTOMATED 57 10^3/uL (150-450)
[2017-03-25 06:47] LABS: IMMATURE PLATELET FRACTION % 8.6 % (0.0-9.6)
[2017-03-25 06:54] LABS: INR 1.49
[2017-03-25 07:04] LABS: ALBUMIN/GLOBULIN RATIO 0.65 (1.00-1.93); ALKALINE PHOSPHATASE 186 U/L (45-117); ALT/SGPT 40 U/L (12-78); ANION GAP 8 MEQ/L (8-16); AST/SGOT 67 U/L (7-37); BILIRUBIN,TOTAL 4.4 MG/DL (0.2-1.0); BLOOD UREA NITROGEN 13 MG/DL (7-18); CALCIUM LEVEL 7.7 MG/DL (8.8-10.2); CARBON DIOXIDE LEVEL 27 MEQ/L (21-32); CHLORIDE LEVEL 103 MEQ/L (98-107); CREATININE FOR GFR 0.87 MG/DL (0.55-1.02); GLOMERULAR FILTRATION RATE > 60.0 (>45); GLUCOSE, FASTING 100 MG/DL (80-110); POTASSIUM SERUM 3.7 MEQ/L (3.5-5.1); SODIUM LEVEL 138 MEQ/L (136-145); TOTAL PROTEIN 5.1 GM/DL (6.4-8.2)
[2017-03-25] MEDS: LACTULOSE 20 GM/30 ML SYRUP UD PO SCH (10:16)
[2017-03-25] MEDS: FUROSEMIDE 40 MG TAB PO SCH (10:17)
[2017-03-25] MEDS: SPIRONOLACTONE 50 MG TAB PO SCH (10:17)
[2017-03-25] MEDS: rifAXIMin 550 MG TAB (XIFAXAN) PO SCH (10:17)
[2017-03-25] MEDS: URSODIOL 300 MG CAP PO SCH (10:17)
--- NOTE | 2017-03-25 16:29 | DS.PDOC ---
Discharge Summary General Date of Admission Mar 23, 2017 at 12:50 Date of Discharge 03/25/17 Discharge Summary PROCEDURES PERFORMED DURING STAY: None. ADMITTING/DISCHARGE DIAGNOSES: Symptomatic anemia COMPLICATIONS/CHIEF COMPLAINT: Symptomatic Anemia. HISTORY OF PRESENT ILLNESS: . 61-year-old female with past medical history of primary biliary cirrhosis, hepatic encephalopathy, morbid obesity, pancytopenia, iron deficiency anemia, moderate mitral regurgitation, mild pulmonary hypertension presents to ER with a chief complaint of sudden onset of shakiness, weakness, and dizziness when attempting to get out of bed and go to the bathroom. The patient stated at the time that she felt that she was having symptoms of hepatic encephalopathy once again, for which she was admitted in December 2016 for. She presents to the ER for further evaluation and management. In the ER, the patient was noted to be anemic with a hemoglobin level of 7.0. The patient subsequently admitted to the hospitalist service for further evaluation and management. During hospitalization, the patient was transfused 3 units of packed red blood cells. She was not observed to have any overt source of bleeding. The patient's anemia was likely a manifestation of underlying primary biliary cirrhosis, and iron deficiency anemia. Following blood transfusion, the patient's hemoglobin levels have remained stable, and she notes she is doing significantly better. The patient's ammonia level was noted to be within normal limits. At this time, the patient reports that she is feeling eager to return home. She has been noted to be ambulating around the hallways and is without any acute complaints of chest pain, shortness of breath, palpitations, or any other acute complaints. I have advised patient to follow-up with her primary care physician within 7 days. In addition, she has been consulted to return to the ER for any acute emergencies. DISCHARGE MEDICATIONS: Please see below. ALLERGIES: Please see below. PHYSICAL EXAMINATION ON DISCHARGE: VITAL SIGNS: Please see below. GENERAL: Awake, alert, oriented 4 HEENT: Normocephalic, atraumatic NECK: No JVD CARDIOVASCULAR EXAMINATION: Normal rate, normal S1, S2 RESPIRATORY EXAMINATION: Clear to auscultation bilaterally ABDOMINAL EXAMINATION: Soft, nontender, nondistended EXTREMITIES: No erythema, no tenderness LABORATORY DATA: Please see below. IMAGING: REASON: Weakness. The technique utilized in obtaining the radiograph has magnified the cardiac silhouette and accentuated the interstitial markings. FINDINGS: The superior mediastinal structures are midline. The cardiac silhouette is unremarkable in size, shape, and position. The diaphragmatic surfaces of the lungs are regular, and the costophrenic angles are clear. The pulmonary sewell are clear. The imaged osseous structures are intact. IMPRESSION: There is no acute cardiopulmonary disease. No change from 06/10/2015. PROGNOSIS: Fair ACTIVITY: As tolerated. DIET: . 2 g low sodium diet DISCHARGE PLAN: DISPOSITION: 01 Home, Self-Care. DISCHARGE INSTRUCTIONS: I have advised patient to follow-up with her primary care physician within 7 days. In addition, she has been consulted to return to the ER for any acute emergencies. DISCHARGE CONDITION: Stable. TIME SPENT ON DISCHARGE: Greater than 30 minutes. Vital Signs/I&Os Vital Signs Date Time Temp Pulse Resp B/P (MAP) Pulse Ox O2 Delivery O2 Flow Rate FiO2 03/25/17 11:36 Room Air 03/25/17 06:00 98.3 80 18 115/54 (74) 98 I&O- Last 24 Hours up to 6 AM 03/26/17 06:00 Intake Total 240 ml Balance 240 ml Laboratory Data Labs 24H Laboratory Tests 2 03/25/17 06:23: Immature Granulocyte % (Auto) 0.4H, White Blood Count 4.5, Red Blood Count 3.49L , Hemoglobin 8.7L, Hematocrit 27.7L, Mean Corpuscular Volume 79.4L, Mean Corpuscular Hemoglobin 24.9L, Mean Corpuscular Hemoglobin Concent 31.4L, Red Cell Distribution Width 22.7H, Platelet Count 57L, Neutrophils (%) (Auto) 56.9, Lymphocytes (%) (Auto) 24.5, Monocytes (%) (Auto) 12.4H, Eosinophils (%) (Auto) 5.1H, Basophils (%) (Auto) 0.7, Neutrophils # (Auto) 2.6, Lymphocytes # (Auto) 1.1L, Monocytes # (Auto) 0.6, Eosinophils # (Auto) 0.2, Basophils # (Auto) 0.0, Immature Granulocyte # (Auto) 0.0, Nucleated Red Blood Cells % (auto) 0.0, Immature Platelet Fraction 8.6, Prothrombin Time 18.4H, Prothromb Time International Ratio 1.49, Anion Gap 8, Glomerular Filtration Rate > 60.0, Blood Urea Nitrogen 13, Creatinine 0.87, Sodium Level 138, Potassium Level 3.7, Chloride Level 103, Carbon Dioxide Level 27, Calcium Level 7.7L, Aspartate Amino Transf (AST/SGOT) 67H, Alanine Aminotransferase (ALT/SGPT) 40, Alkaline Phosphatase 186H, Total Bilirubin 4.4H, Total Protein 5.1L, Albumin 2.0L, Albumin/Globulin Ratio 0.65L CBC/BMP Laboratory Tests 03/25/17 06:23 Red Blood Count 3.49 L, Mean Corpuscular Volume 79.4 L, Mean Corpuscular Hemoglobin 24.9 L, Mean Corpuscular Hemoglobin Concent 31.4 L, Red Cell Distribution Width 22.7 H, Neutrophils (%) (Auto) 56.9, Lymphocytes (%) (Auto) 24.5, Monocytes (%) (Auto) 12.4 H, Eosinophils (%) (Auto) 5.1 H, Basophils (%) ( Auto) 0.7, Neutrophils # (Auto) 2.6, Lymphocytes # (Auto) 1.1 L, Monocytes # ( Auto) 0.6, Eosinophils # (Auto) 0.2, Basophils # (Auto) 0.0, Calcium Level 7.7 L , Aspartate Amino Transf (AST/SGOT) 67 H, Alanine Aminotransferase (ALT/SGPT) 40 , Alkaline Phosphatase 186 H, Total Bilirubin 4.4 H, Total Protein 5.1 L, Albumin 2.0 L Discharge Medications Scheduled Ferrous Sulfate (Ferrous Sulfate) 325 Mg Tab, 325 MG PO Q2D, (Reported) Furosemide (Furosemide) 40 Mg Tab, 40 MG PO BID, (Reported) Multivitamins *[facility] STOCKED* (Thera M Plus *[facility] STOCKED*) 1 Tab Tab, 1 TAB PO DAILY, (Reported) Rifaximin (Xifaxan) 550 Mg Tab, 550 MG PO BID, (Reported) Spironolactone (Spironolactone) 25 Mg Tab, 50 MG PO BID, (Reported) Ursodiol (Ursodiol) 300 Mg Cap, 300 MG PO WM, (Reported) Scheduled PRN (Icy Hot Extra Strength 10-30 %) 1 Cre Cre, 1 DOSE EXT QID PRN for PAIN, ( Reported) USES ON KNEES Lactulose (Lactulose) 10 Gm/15 Ml Maria Isabel, 30 GM PO QID PRN for CONSTIPATION, ( Reported) Nitroglycerin (Nitrostat) 0.4 Mg Subl, 0.4 MG SL NITRO PRN for CHEST PAIN, ( Reported) Allergies Coded Allergies: Penicillins (Unverified Allergy, Mild, rash, 03/23/17) Aspirin (Unverified Adverse Reaction, Unknown, Cirrhosis, 03/23/17) KWESI MAYNARD MD Mar 25, 2017 16:29
== END 2017-03-25 12:15 | disposition home or self-care (01) ==
LOC: M ED 06:23 → M ED INP 12:50 → M MS5PR 14:16
PROVIDERS: ADMIT Internal Medicine Nephrology; ATTEND Internal Medicine
PROC: 30233N1 Transfusion of Nonautologous Red Blood Cells into Peripheral Vein, Percutaneous Approach (ICD-10-PCS; principal; 2017-03-23)
DX: K74.3 Primary biliary cirrhosis (principal); D61.818 Other pancytopenia; I27.20 Pulmonary hypertension, unspecified; Z68.41 Body mass index [BMI] 40.0-44.9, adult; E66.01 Morbid (severe) obesity due to excess calories; D50.9 Iron deficiency anemia, unspecified; I34.0 Nonrheumatic mitral (valve) insufficiency; Z79.899 Other long term (current) drug therapy; Z88.0 Allergy status to penicillin; Z88.6 Allergy status to analgesic agent; F17.200 Nicotine dependence, unspecified, uncomplicated

== ENCOUNTER 2017-03-26 10:11 | Observation (INO) | payer BC ==
[~2017-03-26] VITALS: Ht 167.6 cm; Wt 116.6 kg
[~2017-03-26 10:11] MED LIST changes: +CONS10SO3; +FERR1TAB8 PO; +FURO40TA2 PO; +NITR0.4S14; +SPIR25TA2 PO; +VITMTA PO
[2017-03-26 11:44] LABS: BASO % 0.4 % (0.0-1.0); EOS # 0.1 10^3/uL (0.0-0.50); IMMATURE GRANULOCYTE % 0.2 % (0-0); LYMPH # 0.6 10^3/uL (1.5-4.5); LYMPH % 12.7 % (24.0-44.0); MEAN CORPUSCULAR HGB CONC 31.3 g/dl (32.0-36.5); MEAN CORPUSCULAR VOLUME 79.9 fl (80.0-96.0); MONO # 0.5 10^3/uL (0.0-0.8); MONO % 9.3 % (0.0-5.0); NEUTROPHILS # 3.7 10^3/uL (1.8-7.7); NEUTROPHILS % 75.4 % (36.0-66.0); RED CELL DISTRIBUTION WIDTH 23.5 % (11.5-14.5)
[2017-03-26 11:49] LABS: PLATELET COUNT, AUTOMATED 60 10^3/uL (150-450)
[2017-03-26 11:50] LABS: IMMATURE PLATELET FRACTION % 7.5 % (0.0-9.6); PLATELET F 4.5
[2017-03-26 11:52] LABS: INR 1.46
[2017-03-26 12:16] LABS: ALBUMIN 2.3 GM/DL (3.2-5.2); ALBUMIN/GLOBULIN RATIO 0.66 (1.00-1.93); ALKALINE PHOSPHATASE 229 U/L (45-117); ALT/SGPT 51 U/L (12-78); ANION GAP 8 MEQ/L (8-16); AST/SGOT 88 U/L (7-37); BILIRUBIN,TOTAL 5.5 MG/DL (0.2-1.0); BLOOD UREA NITROGEN 14 MG/DL (7-18); CALCIUM LEVEL 7.7 MG/DL (8.8-10.2); CARBON DIOXIDE LEVEL 29 MEQ/L (21-32); CHLORIDE LEVEL 101 MEQ/L (98-107); CREATININE FOR GFR 0.84 MG/DL (0.55-1.02); GLOMERULAR FILTRATION RATE > 60.0 (>45); GLUCOSE, FASTING 96 MG/DL (80-110); SODIUM LEVEL 138 MEQ/L (136-145); TOTAL PROTEIN 5.8 GM/DL (6.4-8.2)
--- NOTE | 2017-03-26 13:29 | REP ---
CHEST PORTABLE: AP portable view of the chest is performed. Comparison made with prior study of 03/23/2017 as well as other prior exams. There is linear bibasilar fibroatelectatic change with poor ventilation. No consolidating infiltrate is seen. Heart is upper limits of normal in size. Mediastinal silhouette is unchanged. IMPRESSION: Mild bibasilar fibroatelectatic change. Signed by Gianfranco South MD 03/27/2017 09:11 A
--- NOTE | 2017-03-26 13:44 | REP ---
LIMITED ABDOMINAL ULTRASOUND: Limited abdominal ultrasound performed to evaluate for possible ascites. All four quadrants are scanned sonographically. There is trace free fluid in the right upper quadrant. There is no other evidence of ascites. Signed by Gianfranco South MD 03/27/2017 09:12 A
--- NOTE | 2017-03-26 15:38 | REP ---
ABDOMINAL SERIES: Supine and erect views of the abdomen demonstrate no free air. There is mild air and fecal material scattered throughout the colon. There appear to be a few mildly dilated small bowel loops in the mid abdomen which may represent a mild ileus. No significant abnormal calcifications are seen radiographically. There are degenerative changes of the spine. An accompanying view of the chest demonstrates mild bibasilar fibroatelectatic change. IMPRESSION: No free air. A few mildly dilated small bowel loops in the mid abdomen may represent a mild ileus. Signed by Gianfranco South MD 03/27/2017 09:16 A
[2017-03-26] MEDS ORDERED: GASTROGRAFIN SOLUTION 30ML (Q9963) PO ONE ×2 (16:00→16:30)
[2017-03-26] MEDS ORDERED: ISOVUE-370 76% 100ML VIAL (Q9967) As Ordered ONE (17:20)
[2017-03-26] MEDS ORDERED: NS 1,000 ML IV SCH (19:00)
--- NOTE | 2017-03-26 19:41 | REP ---
CT ABDOMEN AND PELVIS WITH ORAL AND IV CONTRAST: TECHNIQUE: Axial contrast enhanced images from the lung bases to the pubic symphysis using 100 mL Isovue 370 intravenous contrast material with multiplanar reformations. Visualized lung bases demonstrate the fibro atelectatic change bilaterally. There is cirrhosis of the liver with characteristic micronodular contour and no definite evidence of a liver mass. Spleen is enlarged. Large varices are seen in the splenic hilum extending inferiorly. Adrenals, pancreas and kidneys are unremarkable. There are atherosclerotic calcifications of the abdominal aorta without aneurysm. There is no adenopathy. There is no free air. There is mild scattered ascites in the abdomen and pelvis. Umbilical hernia contains fat. There is another small periumbilical hernia just inferior to that containing fat. There is an apparent small bowel intussusception in the left mid abdomen which causes partial obstruction with mildly dilated small bowel loops proximal to that. No bowel wall thickening is seen. No pelvic mass is seen. IMPRESSION: Small bowel intussusception in the left mid abdomen appears to cause partial small bowel obstruction. Findings of cirrhosis and mild scattered ascites. Splenomegaly. Splenorenal varices. Two anterior abdominal wall hernias contain fat. Signed by Gianfranco South MD 03/27/2017 09:19 A
[2017-03-26] MEDS ORDERED: ACETAMINOPHEN TAB 650MG DOSE (2X325MG) PO PRN (20:00)
[2017-03-26] MEDS ORDERED: ONDANSETRON 4MG/2ML VIAL (J2405) IV PRN (20:00)
[2017-03-26] MEDS ORDERED: LACTULOSE 20 GM/30 ML SYRUP UD PO PRN (20:15)
[2017-03-26] MEDS ORDERED: PANTOPRAZOLE 40MG INJ (PROTONIX) (C9113) IV SCH (21:00)
[2017-03-26] MEDS ORDERED: URSODIOL 300 MG CAP PO SCH (21:00)
[2017-03-26 22:42] VITALS: BP 133/58
[2017-03-26] MEDS: NS 1,000 ML IV SCH (23:45)
[2017-03-26] MEDS: rifAXIMin 550 MG TAB (XIFAXAN) PO SCH (23:45)
[2017-03-27 04:00] VITALS: BP 111/56
[2017-03-27] MEDS: NS 1,000 ML IV SCH (06:29)
[2017-03-27 07:17] LABS: MEAN CORPUSCULAR HEMOGLOBIN 25.3 pg (27.0-33.0); MEAN CORPUSCULAR HGB CONC 31.2 g/dl (32.0-36.5); RED CELL DISTRIBUTION WIDTH 23.9 % (11.5-14.5); WHITE BLOOD COUNT 3.8 10^3/uL (4.0-10.0)
[2017-03-27 07:20] LABS: PLATELET COUNT, AUTOMATED 53 10^3/uL (150-450)
[2017-03-27 07:40] LABS: ALBUMIN/GLOBULIN RATIO 0.63 (1.00-1.93); ALKALINE PHOSPHATASE 169 U/L (45-117); ALT/SGPT 45 U/L (12-78); ANION GAP 9 MEQ/L (8-16); AST/SGOT 75 U/L (7-37); BILIRUBIN,TOTAL 6.2 MG/DL (0.2-1.0); BLOOD UREA NITROGEN 17 MG/DL (7-18); CALCIUM LEVEL 7.7 MG/DL (8.8-10.2); CARBON DIOXIDE LEVEL 27 MEQ/L (21-32); CHLORIDE LEVEL 103 MEQ/L (98-107); CREATININE FOR GFR 0.73 MG/DL (0.55-1.02); GLOMERULAR FILTRATION RATE > 60.0 (>45); GLUCOSE, FASTING 72 MG/DL (80-110); POTASSIUM SERUM 4.3 MEQ/L (3.5-5.1); SODIUM LEVEL 139 MEQ/L (136-145); TOTAL PROTEIN 5.2 GM/DL (6.4-8.2)
--- NOTE | 2017-03-27 07:50 | HPE ---
DATE OF ADMISSION: 03/26/2017 PRIMARY CARE PROVIDER: CHICHI Parikh ROOM SERVER: Dr. Arce in [place]. CHIEF COMPLAINT: Abdominal pain. HISTORY OF PRESENT ILLNESS: The patient is a 61-year-old white female with several chronic medical conditions listed below including primary biliary cirrhosis, presented to the hospital for abdominal pain. History is provided by herself. Per medical record, she had been hospitalized here 2 days ago, presented with some general weakness and she was found to have severe anemia and she received a blood transfusion and after that she improved and she was discharged home yesterday. Per her, after she left the hospital she was doing okay. However, since this morning she said she developed abdominal pain which is located in her upper abdomen. The pain is on and off. The worst pain is about 5/10 in severity, no radiation, nothing to do with eating. The pain is a sharp pain and she feels nauseous, but no vomiting, no diarrhea. Her last bowel movement was yesterday which was her normal. She denies any fever, no chills. After she came to the emergency room (ER), her initial blood test was in her baseline. However, she underwent an abdominal CT scan which reported partial small bowel obstruction due to small bowel intussusception. machine scallop cutter surgeon, Dr. Martin, was contacted and recommended to admit to the medical service. REVIEW OF SYSTEMS: Denies fever. No chills. No headache. No blurred vision. No shortness of breath. No coughing. Positive nausea, but no vomiting. No hematemesis. Positive abdominal pain. No diarrhea. No constipation. No tingling, numbness, weakness in arms or lower extremities. All other systems reviewed but negative. PAST MEDICAL HISTORY: 1. Primary biliary cirrhosis. Follows with Dr. Arce in [place]. 2. History of hepatic encephalopathy. 3. Pancytopenia. 4. Chronic anemia. 5. Morbid obesity. PAST SURGICAL HISTORY: section. SOCIAL HISTORY: Remote tobacco use, quit many years ago. No alcohol abuse. No illicit drug abuse. She is living with her son. She is a F[employer]. ALLERGIES: Allergic to ASPIRIN and PENICILLIN. FAMILY HISTORY: Reviewed. No history of gastrointestinal (GI) malignancy or cirrhosis. MEDICATIONS: Reviewed. PHYSICAL EXAMINATION: VITAL SIGNS: Temperature is 98, heart rate 80, respirations 16, blood pressure 114/52, oxygen saturation 100% on room air. GENERAL: She is awake, alert, oriented times three. She is not in acute distress. HEENT: Atraumatic. Pupils equal, round, reactive to light. No pallor. No jaundice. Ocular muscles intact. Ears, nose, and throat normal. Mouth mucus a little bit try. NECK: No jugular venous distention (JVD). No bruits. LUNGS: Clear. No wheezing. No crackles. HEART: S1, S2, regular, no murmur. ABDOMEN: Soft. Bowel sounds positive. Nontender. LOWER EXTREMITIES: She has some trace edema in her bilateral lower extremities. NEUROLOGIC: Nonfocal. SKIN: No rash. PSYCHOLOGICAL: No acute psychosis. DIAGNOSTIC LAB STUDIES: Include the following; CBC and differential: WBC 5, hemoglobin and hematocrit 10.2/32.6, platelets 60. Sodium 138, potassium 4, chloride 101, bicarbonate 29, BUN 8, creatinine 0.8, glucose 96, and total bilirubin is 5.5, alkaline phosphatase 229, ALT 55. CT of abdomen and pelvis demonstrated small bowel intussusception in the left mid abdomen appears to cause partial small bowel obstruction. Also, CT finds cirrhosis and mild scattered ascites. IMPRESSION: 1. Abdominal pain due to partial small bowel obstruction and small bowel intussusception. 2. History of biliary cirrhosis. 3. Pancytopenia. 4. Morbid obesity. PLAN: Patient will be admitted to observation. Clinically, she does not have any acute abdomen, even CT showed a partial small bowel obstruction. Will consult surgical service, Dr. Martin. I will keep her nothing by mouth and gentle hydrate her. I will continue her home medications. MARIAELENA
[2017-03-27 08:00] VITALS: BP 129/57
[2017-03-27] MEDS: rifAXIMin 550 MG TAB (XIFAXAN) PO SCH (09:44)
--- NOTE | 2017-03-27 15:29 | DS.PDOC ---
Discharge Summary General Date of Admission Mar 26, 2017 at 19:57 Date of Discharge 03/27/17 Specialist/Consultants Involve: MOY MARTIN DO Discharge Summary PROCEDURES PERFORMED DURING STAY: None. ADMITTING/DISCHARGE DIAGNOSES: Abdominal pain 2/2 small bowel intussusception COMPLICATIONS/CHIEF COMPLAINT: SBO. HISTORY OF PRESENT ILLNESS: . 61-year-old female with past medical history of primary biliary cirrhosis, hepatic encephalopathy, morbid obesity, pancytopenia, iron deficiency anemia, moderate mitral regurgitation, mild pulmonary hypertension presents to ER with a chief complaint of sudden onset of upper abdominal pain that she quantified as 5 out of 10 in severity, no radiation, and with no specific alleviating or aggravating factors. In the ER a CT scan of the abdomen revealed partial small bowel obstruction due to small bowel intussusception. The on-call surgeon was consulted and recommended the patient admitted to the medical service for observation. During hospitalization, the patient was kept nothing by mouth and started on IV fluid hydration. Over the next 12 hours, the patient states that she passed a copious amount of flatus, and notes that her abdominal pain was resolved. The patient was also started on a regular diet, and tolerated this without any acute complaints. In addition, the patient also had a bowel movement. At this time, the patient states that she is feeling much better and she is eager to return home. The patient was seen by the general surgeon, Dr. Martin, who has cleared the patient to be discharged home. At this time, I have advised patient follow-up with her primary care physician within one week. She has been consulted to return to the ER for any acute emergencies. DISCHARGE MEDICATIONS: Please see below. ALLERGIES: Please see below. PHYSICAL EXAMINATION ON DISCHARGE: VITAL SIGNS: Please see below. GENERAL: Awake, alert, oriented 4 HEENT: Normocephalic, atraumatic NECK: No JVD CARDIOVASCULAR EXAMINATION: Normal rate, normal S1, S2 RESPIRATORY EXAMINATION: Clear to auscultation bilaterally ABDOMINAL EXAMINATION: Soft, nontender, nondistended EXTREMITIES: No erythema, no tenderness LABORATORY DATA: Please see below. IMAGING: CT ABDOMEN AND PELVIS WITH ORAL AND IV CONTRAST: TECHNIQUE: Axial contrast enhanced images from the lung bases to the pubic symphysis using 100 mL Isovue 370 intravenous contrast material with multiplanar reformations. Visualized lung bases demonstrate the fibro atelectatic change bilaterally. There is cirrhosis of the liver with characteristic micronodular contour and no definite evidence of a liver mass. Spleen is enlarged. Large varices are seen in the splenic hilum extending inferiorly. Adrenals, pancreas and kidneys are unremarkable. There are atherosclerotic calcifications of the abdominal aorta without aneurysm. There is no adenopathy. There is no free air. There is mild scattered ascites in the abdomen and pelvis. Umbilical hernia contains fat. There is another small periumbilical hernia just inferior to that containing fat. There is an apparent small bowel intussusception in the left mid abdomen which causes partial obstruction with mildly dilated small bowel loops proximal to that. No bowel wall thickening is seen. No pelvic mass is seen. IMPRESSION: Small bowel intussusception in the left mid abdomen appears to cause partial small bowel obstruction. Findings of cirrhosis and mild scattered ascites. Splenomegaly. Splenorenal varices. Two anterior abdominal wall hernias contain fat. PROGNOSIS: Fair ACTIVITY: As tolerated. DIET: . As tolerated DISCHARGE PLAN: DISPOSITION: . Home DISCHARGE INSTRUCTIONS: I have advised the patient to follow-up with her primary care physician within one week. She has been consulted to return to the ER for any acute emergencies. DISCHARGE CONDITION: Stable. TIME SPENT ON DISCHARGE: Greater than 30 minutes. Vital Signs/I&Os Vital Signs Date Time Temp Pulse Resp B/P (MAP) Pulse Ox O2 Delivery O2 Flow Rate FiO2 03/27/17 08:00 98.0 80 20 129/57 (81) 100 Room Air I&O- Last 24 Hours up to 6 AM 03/28/17 06:00 Intake Total 690 ml Output Total 100 ml Balance 590 ml Laboratory Data Labs 24H Laboratory Tests 2 03/26/17 19:19: Lactic Acid Level 1.5 03/27/17 06:32: Anion Gap 9, Glomerular Filtration Rate > 60.0, Blood Urea Nitrogen 17, Creatinine 0.73, Sodium Level 139, Potassium Level 4.3, Chloride Level 103, Carbon Dioxide Level 27, Calcium Level 7.7L, Aspartate Amino Transf (AST/SGOT) 75H, Alanine Aminotransferase (ALT/SGPT) 45, Alkaline Phosphatase 169H, Total Bilirubin 6.2H, Total Protein 5.2L, Albumin 2.0L, Albumin/Globulin Ratio 0.63L 03/27/17 06:33: Nucleated Red Blood Cells % (auto) 0.0 CBC/BMP Laboratory Tests 03/27/17 06:32 Calcium Level 7.7 L, Aspartate Amino Transf (AST/SGOT) 75 H, Alanine Aminotransferase (ALT/SGPT) 45, Alkaline Phosphatase 169 H, Total Bilirubin 6.2 H, Total Protein 5.2 L, Albumin 2.0 L 03/27/17 06:33 Red Blood Count 3.52 L, Mean Corpuscular Volume 81.0, Mean Corpuscular Hemoglobin 25.3 L, Mean Corpuscular Hemoglobin Concent 31.2 L, Red Cell Distribution Width 23.9 H Discharge Medications Scheduled Ferrous Sulfate (Ferrous Sulfate) 325 Mg Tab, 325 MG PO DAILY, (Reported) Furosemide (Furosemide) 40 Mg Tab, 40 MG PO BID, (Reported) Multivitamins *[facility] STOCKED* (Thera M Plus *[facility] STOCKED*) 1 Tab Tab, 1 TAB PO DAILY, (Reported) Rifaximin (Xifaxan) 550 Mg Tab, 550 MG PO BID, (Reported) Spironolactone (Spironolactone) 25 Mg Tab, 50 MG PO BID, (Reported) Ursodiol (Ursodiol) 300 Mg Cap, 300 MG PO QPM, (Reported) Scheduled PRN (Icy Hot Extra Strength 10-30 %) 1 Cre Cre, 1 DOSE EXT QID PRN for PAIN, ( Reported) USES ON KNEES AND BACK Lactulose (Lactulose) 10 Gm/15 Ml Maria Isabel, 30 GM PO QID PRN for CONSTIPATION, ( Reported) Nitroglycerin (Nitrostat) 0.4 Mg Subl, 0.4 MG SL NITRO PRN for CHEST PAIN, ( Reported) Allergies Coded Allergies: Penicillins (Unverified Allergy, Mild, rash, 03/23/17) Aspirin (Unverified Adverse Reaction, Unknown, Cirrhosis, 03/23/17) KWESI MAYNARD MD Mar 27, 2017 15:29
--- NOTE | 2017-03-28 19:11 | CR ---
DATE OF CONSULTATION: 03/27/2017 REASON FOR CONSULTATION: Possible small bowel intussusception HISTORY OF PRESENT ILLNESS: The patient is a 61-year-old female recently admitted to the hospital for anemia. She was here for 2 days. Her hemoglobin was stable so she was discharged home. She returned to the emergency room on the due to some abdominal pains that were new, and she was concerned that she was having problems or bleeding again so she came the hospital for evaluation. In the emergency room, all of her labs and everything were normal; however, her CAT scan showed possible small bowel intussusception in the left midabdomen causing what looked like a partial small-bowel obstruction. Therefore, I was called to evaluate. She was admitted to medicine service overnight. This morning she feels 100% better. She has been passing lots of gas. Her abdomen is soft. She has zero pain. No nausea or vomiting. She has not had anything to eat or drink overnight. She is not having any other symptoms. When she did come in the hospital yesterday, she was having some abdominal cramping but that was it, no other symptoms. No nausea, vomiting. No fevers or chills, and her last normal bowel was less than 24 hours ago. She denies any previous symptoms like this in the past. She does have a history of primary biliary cirrhosis and follows up with Dr. Gonzalez in [place], but she has not required any surgical intervention for that. PAST MEDICAL HISTORY: 1. Primary biliary cirrhosis. 2. Hepatic encephalopathy. 3. Pancytopenia. 4. Chronic anemia. 5. Morbid obesity. PAST SURGICAL HISTORY: section. SOCIAL HISTORY: Denies drug, alcohol, tobacco abuse. FAMILY HISTORY: Noncontributory. ALLERGIES: ASPIRIN and PENICILLIN. MEDICATIONS: Please see medical record. REVIEW OF SYSTEMS: Pertinent positives and negatives as stated in the history of present illness. PHYSICAL EXAMINATION GENERAL: Alert and oriented times three. No acute distress. VITAL SIGNS: Temperature 98.5, pulse 89, respirations 18, blood pressure 111/56, pulse ox 98% room air. HEENT: Pupils equal round react to light accommodation. HEART: S1, S2 regular rhythm. LUNGS: Clear to auscultation bilaterally. ABDOMEN: Soft, nontender, nondistended. EXTREMITIES: No clubbing, cyanosis or edema. LABORATORY DATA: White count 3.8, which is her baseline, hemoglobin 8.9, which is also her baseline. Platelets 53, potassium 4.3, lactic acid 1.5, total bilirubin 6.2, alkaline phosphatase 169. IMAGING STUDIES: CT of the abdomen and pelvis showed small bowel intussusception in left midabdomen, appears to cause partial small-bowel obstruction. Findings of cirrhosis and mild scattered ascites, splenomegaly, splenorenal varices, two anterior abdominal wall hernias containing fat. ASSESSMENT AND PLAN: The patient 61-year-old female with nonspecific abdominal pain and findings of possible small bowel intussusception on her CAT scan. This is likely an incidental finding due to the point at which the CAT scan was taken, unlikely to have been a true small bowel intussusception. This may have been due to some abdominal cramping from mild virus or enteritis of some sort. Regardless of the cause at this point, her symptoms have been completely resolved. She has no nausea. No vomiting. No pains. Labs are at her baseline. Recommend to restart her on a regular diet and discharge her once she is cleared from the medicine service. No indication for any surgical intervention at this time. I am not concerned with a small bowel intussusception unless she develops recurrent symptoms. I have advised her to call my office if her symptoms return.
== END 2017-03-27 17:30 | disposition home or self-care (01) ==
LOC: M ED 10:11 → M ED INP 19:57 → M PED 22:42 → OBSVTOIN 03-27 07:58 → INTOOBSV 03-27 07:58
PROVIDERS: ADMIT Hospitalist; ATTEND Internal Medicine
DX: K56.1 Intussusception (principal); R10.9 Unspecified abdominal pain; R06.02 Shortness of breath; K74.3 Primary biliary cirrhosis; K72.90 Hepatic failure, unspecified without coma; E66.01 Morbid (severe) obesity due to excess calories; D50.9 Iron deficiency anemia, unspecified; I27.20 Pulmonary hypertension, unspecified; I34.0 Nonrheumatic mitral (valve) insufficiency; D61.818 Other pancytopenia; Z88.0 Allergy status to penicillin; Z88.6 Allergy status to analgesic agent; Z87.891 Personal history of nicotine dependence
CPT/HCPCS: 36415; 71010; 74022; 74177; 76705; 80048; 80053; 80076; 82140; 83605; 85025; 85027; 85049; 85055; 85610; 85730; 86850; 86900; 86901; 93041; 94760; 96361; 96374; 99285; C9113; Q9963; Q9967

== ENCOUNTER → 2017-04-28 | Outpatient (CLI) | payer BC ==
[2017-04-28 13:02] LABS: BF MONONUCLEAR CELL % 90.1 % (0-0); BF POLYMORPHONUCLEAR CELL % 9.9 % (0-0); RBC BODY FLUID 7 10^3/uL (<2); WBC BODY FLUID 293 /uL (0-10)
[2017-04-28 13:03] LABS: SOURCE, BODY FLUID ASCITES
[2017-04-28 13:04] LABS: APPEARANCE, BODY FLUID CLOUDY (CLEAR); ASCITES FL COLOR YELLOW (COLORLESS); BF DIFF IF INDICATED? YES (NO)
[2017-04-28 13:49] LABS: ALBUMIN 0.1 GM/DL (3.2-5.2)
[2017-04-28 13:49] LABS: TOTAL PROTEIN 0.4 GM/DL (6.4-8.2)
== END ==
LOC: M RADPRO 09:44
DX: K74.3 Primary biliary cirrhosis (principal); D64.9 Anemia, unspecified; R42 Dizziness and giddiness; M17.0 Bilateral primary osteoarthritis of knee; Z87.891 Personal history of nicotine dependence; Z79.899 Other long term (current) drug therapy; Z88.0 Allergy status to penicillin; Z88.8 Allergy status to other drugs, medicaments and biological substances; Z86.79 Personal history of other diseases of the circulatory system
CPT/HCPCS: 49083

== ENCOUNTER → 2017-05-13 | Outpatient (CLI) | payer BC ==
[2017-05-13 13:45] LABS: ALBUMIN 2.1 GM/DL (3.2-5.2); ALBUMIN/GLOBULIN RATIO 0.62 (1.00-1.93); ALKALINE PHOSPHATASE 281 U/L (45-117); ALT/SGPT 54 U/L (12-78); ANION GAP 5 MEQ/L (8-16); AST/SGOT 81 U/L (7-37); BILIRUBIN,DIRECT 2.7 MG/DL (0.0-0.2); BILIRUBIN,TOTAL 3.6 MG/DL (0.2-1.0); BLOOD UREA NITROGEN 15 MG/DL (7-18); CARBON DIOXIDE LEVEL 30 MEQ/L (21-32); CHLORIDE LEVEL 98 MEQ/L (98-107); CREATININE FOR GFR 0.74 MG/DL (0.55-1.30); GLOMERULAR FILTRATION RATE > 60.0 (>45); PHOSPHORUS LEVEL 3.2 MG/DL (2.5-4.9); POTASSIUM SERUM 4.4 MEQ/L (3.5-5.1); SODIUM LEVEL 133 MEQ/L (136-145); TOTAL PROTEIN 5.5 GM/DL (6.4-8.2)
[2017-05-13 13:49] LABS: BASO % 0.9 % (0.0-1.0); EOS # 0.2 10^3/uL (0.0-0.50); EOS % 4.1 % (0.0-3.0); HEMATOCRIT 29.5 % (36.0-47.0); IMMATURE GRANULOCYTE % 0.5 % (0-0); MEAN CORPUSCULAR HEMOGLOBIN 26.4 pg (27.0-33.0); MEAN CORPUSCULAR HGB CONC 30.5 g/dl (32.0-36.5); MEAN CORPUSCULAR VOLUME 86.5 fl (80.0-96.0); MONO # 0.6 10^3/uL (0.0-0.8); MONO % 12.5 % (0.0-5.0); NEUTROPHILS # 2.7 10^3/uL (1.8-7.7); RED BLOOD COUNT 3.41 10^6/uL (4.00-5.40); RED CELL DISTRIBUTION WIDTH 24.3 % (11.5-14.5); WHITE BLOOD COUNT 4.4 10^3/uL (4.0-10.0)
[2017-05-13 13:58] LABS: INR 1.47; PROTHROMBIN TIME 18.2 SECONDS (12.4-14.5)
[2017-05-13 13:59] LABS: PARTIAL THROMBOPLASTIN TIME 37.6 SECONDS (26.8-37.9)
[2017-05-13 14:22] LABS: PLATELET COUNT, AUTOMATED 77 10^3/uL (150-450)
[2017-05-13 14:23] LABS: IMMATURE PLATELET FRACTION % 8.1 % (0.0-9.6)
[2017-05-17 00:08] LABS: VITAMIN D 1,25 DIHYDROXY 40.4 pg/mL (19.9-79.3); VITAMIN E LEVEL 9.6 mg/L (5.3-16.8)
[2017-05-17 00:08] LABS: VITAMIN A, RETINOL LEVEL 11 ug/dL (20-65)
== END ==
LOC: M LAB 11:53
DX: K74.3 Primary biliary cirrhosis (principal)
CPT/HCPCS: 82565

== ENCOUNTER → 2017-05-14 | Outpatient (REF) | payer BC ==
[2017-05-14 14:48] LABS: SODIUM,RANDOM URINE 66 MEQ/L
== END ==
LOC: M LAB REF 13:17
DX: K74.3 Primary biliary cirrhosis (principal)
CPT/HCPCS: 82570

== ENCOUNTER → 2017-05-29 | Outpatient (CLI) | payer BC ==
[2017-05-29 09:48] LABS: HEMATOCRIT 28.7 % (36.0-47.0); HEMOGLOBIN 9.1 g/dl (12.0-16.0); MEAN CORPUSCULAR HEMOGLOBIN 27.5 pg (27.0-33.0); MEAN CORPUSCULAR HGB CONC 31.7 g/dl (32.0-36.5); MEAN CORPUSCULAR VOLUME 86.7 fl (80.0-96.0); RED BLOOD COUNT 3.31 10^6/uL (4.00-5.40); RED CELL DISTRIBUTION WIDTH 22.1 % (11.5-14.5); WHITE BLOOD COUNT 3.7 10^3/uL (4.0-10.0)
[2017-05-29 09:53] LABS: IMMATURE PLATELET FRACTION % 4.3 % (0.0-9.6); PLATELET COUNT, AUTOMATED 80 10^3/uL (150-450); PLATELET F 69; POSITIVE MORPH POS FLAG; SUSPECT SAMPLE POS FLAG
[2017-05-29 10:18] LABS: ALBUMIN 2.1 GM/DL (3.2-5.2); ALBUMIN/GLOBULIN RATIO 0.64 (1.00-1.93); ALKALINE PHOSPHATASE 269 U/L (45-117); ALT/SGPT 52 U/L (12-78); ANION GAP 6 MEQ/L (8-16); AST/SGOT 75 U/L (7-37); BILIRUBIN,TOTAL 3.1 MG/DL (0.2-1.0); BLOOD UREA NITROGEN 20 MG/DL (7-18); CARBON DIOXIDE LEVEL 29 MEQ/L (21-32); CHLORIDE LEVEL 98 MEQ/L (98-107); CHOLESTEROL LEVEL 125 MG/DL (<200); CHOLESTEROL RISK RATIO 6.944 (<5); CREATININE FOR GFR 0.89 MG/DL (0.55-1.30); GLOMERULAR FILTRATION RATE > 60.0 (>45); GLUCOSE, FASTING 97 MG/DL (70-100); HDL CHOLESTEROL 18 MG/DL (>40); LDL CHOLESTEROL 95.6 MG/DL (<100); NON-HDL-C 107 MG/DL; SODIUM LEVEL 133 MEQ/L (136-145); TOTAL PROTEIN 5.4 GM/DL (6.4-8.2); TRIGLYCERIDES LEVEL 57 MG/DL (<150)
[2017-05-29 10:22] LABS: POTASSIUM SERUM 5.5 MEQ/L (3.5-5.1)
== END ==
LOC: M LAB 08:39
DX: D50.9 Iron deficiency anemia, unspecified (principal)

== ENCOUNTER → 2017-05-29 | Outpatient (CLI) | payer BC ==
[2017-05-29 09:48] LABS: BASO % 0.5 % (0.0-1.0); EOS # 0.1 10^3/uL (0.0-0.50); EOS % 3.2 % (0.0-3.0); HEMOGLOBIN 9.2 g/dl (12.0-16.0); IMMATURE GRANULOCYTE % 0.3 % (0-3.0); LYMPH # 0.8 10^3/uL (1.5-4.5); LYMPH % 21.1 % (24.0-44.0); MEAN CORPUSCULAR HEMOGLOBIN 27.3 pg (27.0-33.0); MEAN CORPUSCULAR HGB CONC 31.7 g/dl (32.0-36.5); MEAN CORPUSCULAR VOLUME 86.1 fl (80.0-96.0); MONO # 0.4 10^3/uL (0.0-0.8); MONO % 11.5 % (0.0-5.0); NEUTROPHILS # 2.4 10^3/uL (1.8-7.7); NEUTROPHILS % 63.4 % (36.0-66.0); RED BLOOD COUNT 3.37 10^6/uL (4.00-5.40); RED CELL DISTRIBUTION WIDTH 22.5 % (11.5-14.5); WHITE BLOOD COUNT 3.7 10^3/uL (4.0-10.0)
[2017-05-29 09:54] LABS: PLATELET COUNT, AUTOMATED 76 10^3/uL (150-450); POSITIVE MORPH POS FLAG; SUSPECT SAMPLE POS FLAG
[2017-05-29 10:10] LABS: ALBUMIN 2.1 GM/DL (3.2-5.2); ALBUMIN/GLOBULIN RATIO 0.64 (1.00-1.93); ALKALINE PHOSPHATASE 274 U/L (45-117); ALT/SGPT 53 U/L (12-78); ANION GAP 7 MEQ/L (8-16); AST/SGOT 74 U/L (7-37); BILIRUBIN,TOTAL 3.1 MG/DL (0.2-1.0); BLOOD UREA NITROGEN 20 MG/DL (7-18); CALCIUM LEVEL 8.1 MG/DL (8.8-10.2); CARBON DIOXIDE LEVEL 29 MEQ/L (21-32); CHLORIDE LEVEL 98 MEQ/L (98-107); CREATININE FOR GFR 0.86 MG/DL (0.55-1.30); GLOMERULAR FILTRATION RATE > 60.0 (>45); GLUCOSE, FASTING 98 MG/DL (70-100); SODIUM LEVEL 134 MEQ/L (136-145); TOTAL PROTEIN 5.4 GM/DL (6.4-8.2)
[2017-05-29 10:17] LABS: POTASSIUM SERUM 5.4 MEQ/L (3.5-5.1)
[2017-06-04 00:07] LABS: VITAMIN A, RETINOL LEVEL 11 ug/dL (20-65)
== END ==
LOC: M LAB 08:43
DX: K74.3 Primary biliary cirrhosis (principal)

== ENCOUNTER 2017-06-13 04:39 | Inpatient (IN) | payer BC ==
[2017-06-13 07:32] LABS: BASO % 0.8 % (0.0-1.0); EOS % 0.8 % (0.0-3.0); HEMATOCRIT 31.8 % (36.0-47.0); HEMOGLOBIN 10.1 g/dl (12.0-16.0); IMMATURE GRANULOCYTE % 0.8 % (0-3.0); LYMPH # 0.5 10^3/uL (1.5-4.5); MEAN CORPUSCULAR HEMOGLOBIN 27.7 pg (27.0-33.0); MEAN CORPUSCULAR HGB CONC 31.8 g/dl (32.0-36.5); MEAN CORPUSCULAR VOLUME 87.1 fl (80.0-96.0); MONO # 0.4 10^3/uL (0.0-0.8); MONO % 9.4 % (0.0-5.0); NEUTROPHILS # 2.9 10^3/uL (1.8-7.7); NEUTROPHILS % 76.2 % (36.0-66.0); RED BLOOD COUNT 3.65 10^6/uL (4.00-5.40); RED CELL DISTRIBUTION WIDTH 22.2 % (11.5-14.5); WHITE BLOOD COUNT 3.8 10^3/uL (4.0-10.0)
[2017-06-13 07:33] LABS: INR 1.28; PROTHROMBIN TIME 16.3 SECONDS (12.4-14.5)
[2017-06-13 07:34] LABS: PLATELET COUNT, AUTOMATED 72 10^3/uL (150-450)
[2017-06-13 07:35] LABS: IMMATURE PLATELET FRACTION % 5.2 % (0.0-9.6)
[2017-06-13 07:52] LABS: AMMONIA 201 uMOL/L (<32)
[2017-06-13 07:58] LABS: ALBUMIN 2.4 GM/DL (3.2-5.2); ALBUMIN/GLOBULIN RATIO 0.67 (1.00-1.93); ALKALINE PHOSPHATASE 283 U/L (45-117); ALT/SGPT 60 U/L (12-78); ANION GAP 8 MEQ/L (8-16); AST/SGOT 82 U/L (7-37); BILIRUBIN,DIRECT 3.3 MG/DL (0.0-0.2); BLOOD UREA NITROGEN 28 MG/DL (7-18); CALCIUM LEVEL 8.1 MG/DL (8.8-10.2); CARBON DIOXIDE LEVEL 28 MEQ/L (21-32); CHLORIDE LEVEL 98 MEQ/L (98-107); CPK CREATINE PHOSPHOKINASE 126 U/L (26-192); CREATININE FOR GFR 1.19 MG/DL (0.55-1.30); GLOMERULAR FILTRATION RATE 49.3 (>45); GLUCOSE, FASTING 111 MG/DL (70-100); LIPASE 180 U/L (73-393); POTASSIUM SERUM 4.7 MEQ/L (3.5-5.1); SODIUM LEVEL 134 MEQ/L (136-145); TROPONIN I 0.02 NG/ML (< 0.10)
[2017-06-13 07:59] LABS: CK-MB VALUE MASS 1.9 NG/ML (0.0-3.6)
[2017-06-13 08:00] LABS: LACTIC ACID SEPSIS PROTOCOL 2.3 MMOL/L (0.4-2.0)
[2017-06-13] MEDS: ONDANSETRON 4MG/2ML VIAL (J2405) IV (08:08)
[2017-06-13] MEDS: NS 500 ML IV (08:08)
[2017-06-13] MEDS: LACTULOSE 20 GM/30 ML SYRUP UD PO ×3 (08:57→17:54)
[2017-06-13] MEDS: NS 1,000 ML IV (10:15)
[2017-06-13] MEDS: LACTULOSE 20 GM/30 ML SYRUP UD PR (15:15)
[2017-06-13] MEDS ORDERED: NITROGLYCERIN 0.4 MG SUBL TABLET SL (15:15)
[2017-06-13] MEDS ORDERED: URSODIOL 300 MG CAP PO (16:00)
[2017-06-13 16:25] LABS: APPEARANCE, URINE HAZY (CLEAR); BACTERIA, URINE AUTO NEGATIVE (NEGATIVE); BILIRUBIN, URINE AUTO 1+ (NEGATIVE); BLOOD, URINE BLOOD NEGATIVE (NEGATIVE); COLOR, URINE AMBER (YELLOW); GLUCOSE, URINE (UA) AUTO NEGATIVE (NEGATIVE); KETONE, URINE AUTO TRACE mg/dL (NEGATIVE); LEUKOCYTE ESTERASE, URINE AUTO NEGATIVE (NEGATIVE); MUCUS, URINE SMALL (NEGATIVE); NITRITE, URINE AUTO NEGATIVE (NEGATIVE); PROTEIN, URINE AUTO NEGATIVE (NEGATIVE); RBC, URINE AUTO 2 /HPF (0-3); SPECIFIC GRAVITY URINE AUTO 1.026 (1.002-1.035); SQUAMOUS EPITHELIAL CELL UR AU 1 /HPF (0-6); WBC, URINE AUTO 2 /HPF (0-3)
[2017-06-13 19:36] LABS: LACTIC ACID SEPSIS PROTOCOL 2.1 MMOL/L (0.4-2.0)
[2017-06-13] MEDS: rifAXIMin 550 MG TAB (XIFAXAN) PO (21:56)
[2017-06-14] MEDS: LACTULOSE 20 GM/30 ML SYRUP UD PO ×4 (00:40→22:00)
[2017-06-14] MEDS: NS 1,000 ML IV (00:41)
[2017-06-14 05:38] LABS: BASO % 0.4 % (0.0-1.0); EOS # 0.1 10^3/uL (0.0-0.50); EOS % 1.4 % (0.0-3.0); HEMATOCRIT 27.2 % (36.0-47.0); HEMOGLOBIN 8.7 g/dl (12.0-16.0); IMMATURE GRANULOCYTE % 0.4 % (0-3.0); LYMPH # 0.9 10^3/uL (1.5-4.5); LYMPH % 17.4 % (24.0-44.0); MEAN CORPUSCULAR HEMOGLOBIN 27.8 pg (27.0-33.0); MEAN CORPUSCULAR VOLUME 86.9 fl (80.0-96.0); MONO # 0.5 10^3/uL (0.0-0.8); MONO % 10.5 % (0.0-5.0); NEUTROPHILS # 3.4 10^3/uL (1.8-7.7); NEUTROPHILS % 69.9 % (36.0-66.0); RED BLOOD COUNT 3.13 10^6/uL (4.00-5.40); RED CELL DISTRIBUTION WIDTH 22.9 % (11.5-14.5); WHITE BLOOD COUNT 4.9 10^3/uL (4.0-10.0)
[2017-06-14 05:43] LABS: PLATELET COUNT, AUTOMATED 66 10^3/uL (150-450)
[2017-06-14 05:58] LABS: AMMONIA 33 uMOL/L (<32)
[2017-06-14 06:00] LABS: ALBUMIN 2.1 GM/DL (3.2-5.2); ALBUMIN/GLOBULIN RATIO 0.75 (1.00-1.93); ALKALINE PHOSPHATASE 187 U/L (45-117); ALT/SGPT 52 U/L (12-78); ANION GAP 9 MEQ/L (8-16); AST/SGOT 71 U/L (7-37); BILIRUBIN,TOTAL 4.1 MG/DL (0.2-1.0); BLOOD UREA NITROGEN 29 MG/DL (7-18); CALCIUM LEVEL 8.1 MG/DL (8.8-10.2); CARBON DIOXIDE LEVEL 25 MEQ/L (21-32); CHLORIDE LEVEL 103 MEQ/L (98-107); CREATININE FOR GFR 1.12 MG/DL (0.55-1.30); GLOMERULAR FILTRATION RATE 52.8 (>45); GLUCOSE, FASTING 97 MG/DL (70-100); MAGNESIUM LEVEL 1.9 MG/DL (1.8-2.4); POTASSIUM SERUM 4.3 MEQ/L (3.5-5.1); SODIUM LEVEL 137 MEQ/L (136-145); TOTAL PROTEIN 4.9 GM/DL (6.4-8.2)
[2017-06-14] MEDS: PANTOPRAZOLE 40MG INJ (PROTONIX) (C9113) IV (09:53)
[2017-06-14] MEDS: rifAXIMin 550 MG TAB (XIFAXAN) PO ×2 (09:53→22:06)
[2017-06-14] MEDS: NYSTATIN 100,000 UNITS/GM TOPICAL PWD 15 GM TOP ×2 (09:54→22:08)
[2017-06-14] MEDS: FUROSEMIDE 40 MG TAB PO (16:45)
[2017-06-14] MEDS: SPIRONOLACTONE 25 MG TAB PO (16:45)
[2017-06-15] MEDS: ACETAMINOPHEN TAB 650MG DOSE (2X325MG) PO (04:55)
[2017-06-15] MEDS: LACTULOSE 20 GM/30 ML SYRUP UD PO (04:59)
[2017-06-15 07:01] LABS: BASO % 0.5 % (0.0-1.0); EOS # 0.1 10^3/uL (0.0-0.50); EOS % 2.7 % (0.0-3.0); HEMATOCRIT 25.4 % (36.0-47.0); HEMOGLOBIN 8.1 g/dl (12.0-16.0); IMMATURE GRANULOCYTE % 0.2 % (0-3.0); LYMPH % 24.6 % (24.0-44.0); MEAN CORPUSCULAR HEMOGLOBIN 27.8 pg (27.0-33.0); MEAN CORPUSCULAR HGB CONC 31.9 g/dl (32.0-36.5); MEAN CORPUSCULAR VOLUME 87.3 fl (80.0-96.0); MONO # 0.7 10^3/uL (0.0-0.8); MONO % 17.7 % (0.0-5.0); NEUTROPHILS # 2.2 10^3/uL (1.8-7.7); NEUTROPHILS % 54.3 % (36.0-66.0); RED BLOOD COUNT 2.91 10^6/uL (4.00-5.40); RED CELL DISTRIBUTION WIDTH 21.7 % (11.5-14.5)
[2017-06-15 07:05] LABS: PLATELET COUNT, AUTOMATED 63 10^3/uL (150-450)
[2017-06-15 07:06] LABS: IMMATURE PLATELET FRACTION % 4.1 % (0.0-9.6)
[2017-06-15 07:18] LABS: AMMONIA 53 uMOL/L (<32)
[2017-06-15 07:25] LABS: ALBUMIN 1.9 GM/DL (3.2-5.2); ALBUMIN/GLOBULIN RATIO 0.68 (1.00-1.93); ALKALINE PHOSPHATASE 185 U/L (45-117); ALT/SGPT 48 U/L (12-78); ANION GAP 8 MEQ/L (8-16); AST/SGOT 68 U/L (7-37); BILIRUBIN,TOTAL 3.6 MG/DL (0.2-1.0); BLOOD UREA NITROGEN 23 MG/DL (7-18); CALCIUM LEVEL 7.7 MG/DL (8.8-10.2); CARBON DIOXIDE LEVEL 27 MEQ/L (21-32); CHLORIDE LEVEL 103 MEQ/L (98-107); CREATININE FOR GFR 1.04 MG/DL (0.55-1.30); GLOMERULAR FILTRATION RATE 57.5 (>45); GLUCOSE, FASTING 81 MG/DL (70-100); MAGNESIUM LEVEL 1.8 MG/DL (1.8-2.4); POTASSIUM SERUM 4.2 MEQ/L (3.5-5.1); SODIUM LEVEL 138 MEQ/L (136-145); TOTAL PROTEIN 4.7 GM/DL (6.4-8.2)
[2017-06-15] MEDS: NYSTATIN 100,000 UNITS/GM TOPICAL PWD 15 GM TOP (09:00)
[2017-06-15] MEDS: rifAXIMin 550 MG TAB (XIFAXAN) PO (09:31)
[2017-06-15] MEDS: VITAMIN D 1,000 INTERNATIONAL UNITS TABLET PO (09:31)
[2017-06-15] MEDS: VITAMIN A 10,000 INTERNATIONAL UNITS CAP PO (09:31)
[2017-06-15] MEDS: OMEPRAZOLE 20 MG CAP PO (09:31)
[2017-06-15] MEDS: FUROSEMIDE 40 MG TAB PO (09:32)
[2017-06-15] MEDS: SPIRONOLACTONE 25 MG TAB PO (09:32)
[2017-06-15] MEDS: FERROUS SULFATE 325MG TAB PO (09:32)
[2017-06-15] MEDS: MULTIVITAMINS/MINERALS THERAP 1 TAB PO (09:33)
== END 2017-06-15 12:55 | disposition home or self-care (01) | DRG 279 ==
LOC: M MS4PR 06-14 12:20 → M ED 04:39 → M ED INP 09:54
DX: K72.00 Acute and subacute hepatic failure without coma (principal); G93.41 Metabolic encephalopathy; D61.818 Other pancytopenia; K74.5 Biliary cirrhosis, unspecified; E72.20 Disorder of urea cycle metabolism, unspecified; E66.01 Morbid (severe) obesity due to excess calories; Z91.19 Patient's noncompliance with other medical treatment and regimen; E78.2 Mixed hyperlipidemia; K21.9 Gastro-esophageal reflux disease without esophagitis; Z79.899 Other long term (current) drug therapy; Z88.0 Allergy status to penicillin; Z88.6 Allergy status to analgesic agent

== ENCOUNTER 2017-07-02 23:40 | Inpatient (IN) | payer BC ==
[2017-07-03] MEDS: MORPHINE 4 MG/ML 1ML VIAL (J2270) IV ×2 (00:34→01:42)
[2017-07-03] MEDS: CYCLOBENZAPRINE 10 MG TAB PO (03:02)
[2017-07-03 03:14] LABS: HEMATOCRIT 28.9 % (36.0-47.0); HEMOGLOBIN 9.2 g/dl (12.0-16.0); MEAN CORPUSCULAR HEMOGLOBIN 28.7 pg (27.0-33.0); MEAN CORPUSCULAR HGB CONC 31.8 g/dl (32.0-36.5); PLATELET COUNT, AUTOMATED 71 10^3/uL (150-450); POSITIVE MORPH POS FLAG; RED BLOOD COUNT 3.21 10^6/uL (4.00-5.40); RED CELL DISTRIBUTION WIDTH 25.2 % (11.5-14.5); WHITE BLOOD COUNT 17.1 10^3/uL (4.0-10.0)
[2017-07-03 03:15] LABS: ADD MANUAL DIFFER YES; DIFF SLIDE NUMBER 99; IMMATURE PLATELET FRACTION % 6.2 % (0.0-9.6)
[2017-07-03 03:22] LABS: BANDS 11 % (< 11); LYMPHOCYTES 1 % (16-52); METAMYELOCYTES 1 % (0-0); MONOCYTES 5 % (0-8); NEUTROPHILS 82 % (35-75); PLATELET ESTIMATE MARKED DECREASE (NORMAL)
[2017-07-03 03:23] LABS: ANISOCYTOSIS 3+; POLYCHROMASIA 2+
[2017-07-03 03:24] LABS: OVALOCYTES 1+
[2017-07-03 03:33] LABS: ANION GAP 7 MEQ/L (8-16); BLOOD UREA NITROGEN 34 MG/DL (7-18); CALCIUM LEVEL 7.9 MG/DL (8.8-10.2); CARBON DIOXIDE LEVEL 28 MEQ/L (21-32); CHLORIDE LEVEL 101 MEQ/L (98-107); CREATININE FOR GFR 1.37 MG/DL (0.55-1.30); GLOMERULAR FILTRATION RATE 41.9 (>45); GLUCOSE, FASTING 133 MG/DL (70-100); POTASSIUM SERUM 4.4 MEQ/L (3.5-5.1); SODIUM LEVEL 136 MEQ/L (136-145)
[2017-07-03] MEDS: HEPARIN SOD (PORCINE) 5000 UNITS/ML VIAL SQ (06:00)
[2017-07-03] MEDS: LACTULOSE 20 GM/30 ML SYRUP UD PO (08:13)
[2017-07-03] MEDS: VITAMIN D 1,000 INTERNATIONAL UNITS TABLET PO (08:14)
[2017-07-03] MEDS: CEFEPIME HCL 1 GM in D5W MINI-BAG PLUS 50 ML IV (08:14)
[2017-07-03] MEDS: OMEPRAZOLE 20 MG CAP PO (08:14)
[2017-07-03] MEDS: MULTIVITAMINS/MINERALS THERAP 1 TAB PO (08:14)
[2017-07-03] MEDS ORDERED: MORPHINE 4 MG/ML 1ML VIAL (J2270) IV (08:30)
[2017-07-03] MEDS: NS 1,000 ML IV (09:20)
[2017-07-03] MEDS: LevoFLOXacin IV 750 MG in APPROPRIATE DILUENT 1 EA IV (09:20)
[2017-07-03] MEDS: rifAXIMin 550 MG TAB (XIFAXAN) PO (09:21)
[2017-07-03] MEDS: URSODIOL 300 MG CAP PO (09:21)
[2017-07-03] MEDS: CYCLOBENZAPRINE 5MG TABLET PO (09:27)
[2017-07-03 10:17] LABS: ALBUMIN/GLOBULIN RATIO 0.61 (1.00-1.93); ALKALINE PHOSPHATASE 246 U/L (45-117); ALT/SGPT 54 U/L (12-78); AST/SGOT 75 U/L (7-37); BILIRUBIN,DIRECT 4.2 MG/DL (0.0-0.2); TOTAL PROTEIN 5.3 GM/DL (6.4-8.2)
[2017-07-03] MEDS: IPRATROPIUM 0.5MG/ALBUTEROL 2.5MG INH SOL UD 3ML (DUONEB)(J7620) NEB ×2 (11:09→11:10)
[2017-07-03 11:15] LABS: AMMONIA 20 uMOL/L (<32)
[2017-07-04] MEDS ORDERED: FERROUS SULFATE 325MG TAB PO (09:00)
== END 2017-07-03 12:19 | disposition short-term general hospital (02) | DRG 347 ==
LOC: M ED 23:40 → M ED INP 07-03 05:52
DX: M48.54XA Collapsed vertebra, not elsewhere classified, thoracic region, initial encounter for fracture (principal); N17.9 Acute kidney failure, unspecified; K74.5 Biliary cirrhosis, unspecified; Z68.42 Body mass index [BMI] 45.0-49.9, adult; E66.01 Morbid (severe) obesity due to excess calories; I25.10 Atherosclerotic heart disease of native coronary artery without angina pectoris; Z88.0 Allergy status to penicillin; Z88.6 Allergy status to analgesic agent; Z87.891 Personal history of nicotine dependence; Z79.899 Other long term (current) drug therapy